=== PATIENT | male | born 1985 | race Hispanic/Latino ===

== ENCOUNTER 2022-04-29 13:25 | Emergency (ER) | payer OTHER, SELFPAY ==
[2022-04-29] VITALS (14 sets, daily range): BP systolic 138–172; BP diastolic 84–104; PULSE 80–95; RESP 17–18; TEMP 36.4; O2SAT 97–100; BMI 32.8
[2022-04-29 17:45] LABS: Add Manual Diff / Slide Review NO; Basophils Absolute Auto 100 /uL (0-100); Basophils Percent Auto 0.5 % (0-2); Eosinophils Absolute Auto 100 /uL (0-450); Eosinophils Percent Auto 1.2 % (2-4); Hematocrit 44.2 % (41-53); Hemoglobin 15.3 g/dL (13.5-17.5); Lymphocytes Absolute Auto 2000 /uL (1100-4500); Lymphocytes Percent Auto 18.2 % (25-40); Mean Corpuscular HGB Conc 34.7 % (30-36); Mean Corpuscular Hemoglobin 30.3 PG (26-34); Mean Corpuscular Volume 87.4 fL (80-100); Monocytes Absolute Auto 1100 /uL (0-900); Monocytes Percent Auto 10.3 % (3-14); Neutrophils Absolute Auto 7500 /uL (1500-7000); Neutrophils Percent Auto 69.8 % (50-75); Platelet Count 205 X10^3/uL (150-400); Red Blood Cell Count 5.05 X10^6/uL (4.5-5.9); Red Cell Distribution Width 13.3 % (11.6-14.8); White Blood Cell Count 10.7 X10^3/uL (4.5-11.0)
[2022-04-29] MEDS: KETOROLAC 30 MG/ML VIAL IV (18:03)
[2022-04-29] MEDS: SODIUM CHLORIDE 0.9% 1,000 ML 1000 ML IV (18:03)
[2022-04-29] MEDS: ONDANSETRON 4 MG/2 ML INJ IV (18:04)
[2022-04-29 18:07] LABS: Alanine Aminotransferase 143 IU/L (<50); Albumin 4.5 g/dL (3.5-5.0); Albumin Globulin Ratio 1.2 (1.0-2.8); Alkaline Phosphatase 72 U/L (38-126); Aspartate Aminotransferase 58 IU/L (17-59); BUN Creatinine Ratio 16.5 (6-22); Bilirubin Total 0.5 mg/dL (0.2-1.3); Blood Urea Nitrogen 15 mg/dL (9-20); Calcium 9.1 mg/dL (8.4-10.2); Carbon Dioxide 30 mmol/L (22-32); Chloride 99 mmol/L (98-107); Estimated Glomerular Filt Rate > 60 mL/min (>60); Globulin 3.7 g/dL (1.7-4.1); Glucose 138 mg/dL (70-100); HEMOLYSIS < 15 (0-50); Lipase 133 U/L (23-300); Potassium 3.8 mmol/L (3.4-5.1); Sodium 139 mmol/L (137-145); Total Protein 8.2 g/dL (6.3-8.2)
--- NOTE | 2022-04-29 19:23 | DI.CT.S_ITS ---
PROCEDURE: CT ABDOMEN PELVIS W CON INDICATIONS: ? rectal abcess TECHNIQUE: After the administration of IV contrast, axial sections were acquired from the lung bases to the pubic symphysis. Coronal and sagittal reformats were performed. For radiation dose reduction, the following was used: automated exposure control, adjustment of mA and/or kV according to patient size. COMPARISON: None. FINDINGS: Image quality: Excellent. Lung bases: There is mild dependent atelectasis. Heart: Heart is normal in size. ABDOMEN: Liver: There is heterogeneous hypoattenuation of the liver consistent with fatty infiltration with scattered areas of peripheral focal fatty sparing along the gallbladder fossa. Gallbladder: Within normal limits without calcified gallstones. Biliary ducts: No biliary ductal dilatation. Pancreas: Unremarkable. Spleen: Normal in size. Adrenal Glands: No adrenal nodules. Kidneys and Ureters: No hydronephrosis. Stomach and Bowel: Stomach and small bowel loops are normal in caliber and wall thickness. The appendix is not discretely well visualized but there are no pericecal inflammatory changes to suggest appendicitis. There is colonic diverticulosis without acute diverticulitis. Mild concentric wall thickening is demonstrated in the rectum. Peritoneum: No abnormal intraperitoneal fluid. No free air. Ventral Wall: No hernia. Abdominal Nodes: No retroperitoneal or mesenteric adenopathy by size criteria. Vessels: Aorta and inferior vena cava are normal in size. PELVIS: Pelvic Organs: Unremarkable. Bladder: Unremarkable. Pelvic Nodes: No enlarged lymph nodes. Miscellaneous: No inguinal hernias. There is a posterior thick-walled fluid collection consistent with a perianal abscess at the 6 o'clock position measuring approximately 2.5 x 1.0 cm in transverse dimension by 1.3 cm in craniocaudal dimension. Mild fat stranding is demonstrated within the adjacent soft tissues. Bones: Visualized osseous structures demonstrate no suspicious focal lesions. IMPRESSION: 1. Perianal abscess demonstrated at the 6 o'clock position. Further evaluation may be obtained with MRI if clinically indicated. 2. Colonic diverticulosis. 3. Hepatic steatosis. Dictated by: Rome Trimble M.D. on 04/29/2022 at 20:19 Approved by: Rome Trimble M.D. on 04/29/2022 at 20:28
--- NOTE | 2022-04-29 20:46 | ED_ITS ---
HPI - Skin/Abscess/Foreign Bdy General Chief complaint: Skin/Abscess/Foreign Body Stated complaint: abcess that is getting deeper Time Seen by Provider: 04/29/22 18:22 Source: patient Mode of arrival: Ambulatory History of Present Illness HPI narrative: Otherwise healthy 36-year-old gentleman, active [employer], presents with concerns for perirectal abscess. His symptoms began in late February. He he had a minor illness with vomiting for approximately 4 days associated with development of an abscess in the right inner buttock that he did not believe was near the rectum at that time. The size of that abscess has been waxing and waning but never completely resolving. Approximately 5 days ago it had dramatically increased swelling and pain. [place] and D on the with self-described quite a bit of purulence feeling somewhat better. Started on doxycycline. The wound was packed he saw his provider the following day the packing was changed. By today he was noticing that the pain was deeper down toward his rectum having difficulty sitting, difficulty passing stool. He does note that the fevers that he was experiencing earlier in the week have not been so immediately present and he does continue on the doxycycline. He is had no vomiting since earlier this week. No chest pain, palpitations, headaches, dizziness, shortness of breath. Related Data Home Medications Medication Instructions Recorded Confirmed doxycycline hyclate 100 mg capsule 100 mg PO DAILY 04/29/22 04/29/22 Previous Rx's Medication Instructions Recorded amoxicillin 875 mg-potassium 1 tab PO BID #20 tabs 04/29/22 clavulanate 125 mg tablet oxycodone-acetaminophen 5 mg-325 1 tab PO Q6H PRN pain #14 tabs 04/29/22 mg tablet Allergies Allergy/AdvReac Type Severity Reaction Status Date / Time No Known Drug Allergies Allergy Verified 04/29/22 14:06 Review of Systems Review of Systems Narrative: Remainder of complete review of systems is otherwise unremarkable except for that included in the HPI. Patient History Social History Smoking Status: Never smoker Smoking Status: Never smoker alcohol intake frequency: a few times a week Substance Use Type: does not use Exam Initial Vital Signs Initial Vital Signs: Vital Signs Temperature 97.6 F 04/29/22 14:03 Pulse Rate 85 04/29/22 14:03 Respiratory Rate 17 04/29/22 14:03 Blood Pressure 172/92 H 04/29/22 14:03 Pulse Oximetry 98 04/29/22 14:03 Oxygen Delivery Method 04/29/22 14:03 General: Healthy appearing, in no acute distress. Able to give a complete and coherent history. Well-nourished well-developed HEENT: Moist mucous membranes, normal sclera with reactive pupils, Neck: No JVD, supple Respiratory: Lungs are clear to auscultation, no wheezing no rales no rhonchi. Full and symmetrical air movement Cardiac: Regular rate and rhythm no murmurs no bruits Abdomen: Soft, nontender, good bowel tones, no flank pain Skin: Warm and dry, no rashes Perianal area: I&D incision well out on the inner gluteal cleft almost 2 the actual buttock cheek is beginning to heal, no drainage, no fluctuance under that area and no erythema. Deeper toward the rectum there is increased induration and significant tenderness. No discharge is appreciated Neurologic: Grossly neurologically intact with no obvious asymmetries or abnormalities Extremities: No trauma, well perfused Psych: Cooperative, appropriate insight and affect Course Orders Ordered: ED Orders 04/29/22 17:25 Complete Blood Count AUTO DIFF Stat Comprehensive Metabolic Panel Stat Lipase Stat 04/29/22 19:23 CT abdomen pelvis w con Stat Discontinued Medications Sodium Chloride (Normal Saline 0.9%) 1,000 mls @ 1,000 mls/hr IV BOLUS ONE Stop: 04/29/22 18:14 Last Infusion: 04/29/22 19:10 Dose: 0 mls/hr Documented By: Admin: 04/29/22 18:03 Dose: 1,000 mls/hr Documented By: RB Ketorolac Tromethamine (Ketorolac 30 Mg/Ml Vial) 30 mg IV NOW ONE Stop: 04/29/22 17:16 Last Admin: 04/29/22 18:03 Dose: 30 mg Documented By: RB Ondansetron HCl (Ondansetron 4 Mg/2 Ml Inj) 4 mg IV NOW ONE Stop: 04/29/22 17:15 Last Admin: 04/29/22 18:04 Dose: 4 mg Documented By: RB Oxycodone/Acetaminophen (Oxycodone/Apap 5/325 Prepack) 1 bottle MISC SEEINSTR ONE Stop: 04/29/22 21:48 Vital Signs Vital signs: Vital Signs - 8 hr 04/29/22 14:03 04/29/22 17:12 04/29/22 17:13 Temperature 97.6 F Pulse Rate 85 86 Respiratory Rate 17 Blood Pressure 172/92 H 162/104 H Pulse Oximetry 98 100 Oxygen Delivery Method Room Air 04/29/22 17:13 04/29/22 17:30 04/29/22 17:36 Temperature Pulse Rate 86 89 Respiratory Rate Blood Pressure 145/99 H Pulse Oximetry 100 99 Oxygen Delivery Method 04/29/22 17:36 04/29/22 18:00 04/29/22 18:00 Temperature Pulse Rate 88 89 Respiratory Rate Blood Pressure 151/100 H Pulse Oximetry 98 98 Oxygen Delivery Method 04/29/22 18:30 04/29/22 18:31 04/29/22 18:31 Temperature Pulse Rate 87 89 Respiratory Rate Blood Pressure 144/85 H Pulse Oximetry 98 98 Oxygen Delivery Method 04/29/22 19:00 04/29/22 19:00 Temperature Pulse Rate 95 H Respiratory Rate Blood Pressure 148/91 H Pulse Oximetry 98 Oxygen Delivery Method MDM - Skin/Abscess/Foreign Bdy Lab Data Result diagrams: 04/29/22 17:25 04/29/22 17:25 Labs: Lab Results 04/29/22 04/29/22 Range/Units 17:25 17:25 WBC 10.7 (4.5-11.0) X10^3/uL RBC 5.05 (4.5-5.9) X10^6/uL Hgb 15.3 (13.5-17.5) g/dL Hct 44.2 (41-53) % MCV 87.4 (80-100) fL MCH 30.3 (26-34) PG MCHC 34.7 (30-36) % RDW 13.3 (11.6-14.8) % Plt Count 205 (150-400) X10^3/uL Neut % (Auto) 69.8 (50-75) % Lymph % (Auto) 18.2 L (25-40) % [place] % (Auto) 10.3 (3-14) % Eos % (Auto) 1.2 L (2-4) % Baso % (Auto) 0.5 (0-2) % Neut # (Auto) 7500 H (1249-5675) /uL Lymph # (Auto) 2000 (1294-4202) /uL [place] # (Auto) 1100 H (0-900) /uL Eos # (Auto) 100 (0-450) /uL Baso # (Auto) 100 (0-100) /uL Sodium 139 (137-145) mmol/L Potassium 3.8 (3.4-5.1) mmol/L Chloride 99 (98-107) mmol/L Carbon Dioxide 30 (22-32) mmol/L BUN 15 (9-20) mg/dL Creatinine 0.91 (0.66-1.25) mg/dL Estimated GFR > 60 (>60) mL/min BUN/Creatinine Ratio 16.5 (6-22) Glucose 138 H (70-100) mg/dL Calcium 9.1 (8.4-10.2) mg/dL Total Bilirubin 0.5 (0.2-1.3) mg/dL AST 58 (17-59) IU/L ALT 143 H (<50) IU/L Alkaline Phosphatase 72 (38-126) U/L Total Protein 8.2 (6.3-8.2) g/dL Albumin 4.5 (3.5-5.0) g/dL Globulin 3.7 (1.7-4.1) g/dL Albumin/Globulin Ratio 1.2 (1.0-2.8) Lipase 133 (23-300) U/L Urine Dip Bedside Urine Glucose Negative Bedside Urine Bilirubin - Negative Bedside Urine Ketone - Negative Urine Specific [place] 1.025 Bedside Urine Occult Blood - Negative Bedside Urine pH 6.0 Bedside Urine Protein - Negative Bedside Urine Urobilinogen 0.2 Bedside Urine Nitrite - Negative Bedside Urine Leukocytes - Negative Esterase Imaging Data CT scan - abdomen/pelvis: Radiologist's Impression: FINDINGS:? Image quality:? Excellent.? ? Lung bases:? There is mild dependent atelectasis.? ? Heart:? Heart is normal in size. ? ? ABDOMEN: Liver:? There is heterogeneous hypoattenuation of the liver consistent with fatty infiltration with scattered areas of peripheral focal fatty sparing along the gallbladder fossa. Gallbladder:? Within normal limits without calcified gallstones.? ? Biliary ducts:? No biliary ductal dilatation.? ? Pancreas:? Unremarkable.? ? Spleen:? Normal in size.? ? Adrenal Glands:? No adrenal nodules.? ? Kidneys and Ureters:? No hydronephrosis.? ? ? Stomach and Bowel:? Stomach and small bowel loops are normal in caliber and wall thickness.? The appendix is not discretely well visualized but there are no pericecal inflammatory changes to suggest appendicitis.? There is colonic diverticulosis without acute diverticulitis.? Mild concentric wall thickening is demonstrated in the rectum.? Peritoneum:? No abnormal intraperitoneal fluid.? No free air.? ? Ventral Wall: ? No hernia.? Abdominal Nodes:? No retroperitoneal or mesenteric adenopathy by size criteria.? Vessels:? Aorta and inferior vena cava are normal in size.? ? PELVIS: Pelvic Organs:? Unremarkable.? ? Bladder:? Unremarkable.? ? Pelvic Nodes: No enlarged lymph nodes.? Miscellaneous: No inguinal hernias. ? ? There is a posterior thick-walled fluid collection consistent with a perianal abscess at the 6 o'clock position measuring approximately 2.5 x 1.0 cm in transverse dimension by 1.3 cm in craniocaudal dimension.? Mild fat stranding is demonstrated within the adjacent soft tissues. ? Bones:? Visualized osseous structures demonstrate no suspicious focal lesions. ? IMPRESSION:? ? 1.? Perianal abscess demonstrated at the 6 o'clock position.? Further evaluation may be obtained with MRI if clinically indicated. ? 2. Colonic diverticulosis. ? 3. Hepatic steatosis.? ? ? Dictated by: Rome Trimble M.D. on 04/29/2022 at 20:19 ? ? [facility] Narrative Medical decision making narrative: 36-year-old gentleman with what looked like a gluteal abscess now turning into a perineal abscess has been I indeed increasing pain. CT scan will be reviewed with General surgery to see which course of treatment is going to be most ap propriate for him. CT scan has been reviewed with general surgeon, Dr. Rogers. She agrees that c ontinued oral antibiotic management as an outpatient is most appropriate. Additional prescription for amoxicillin to add to his doxycycline is given. Reviewed findings and recommendations as well as using MiraLax should he choose to use the oxycodone that has been prescribed. Encouraged him to return if he has worsening signs or symptoms. Discharge Plan Departure Patient Disposition: Home Clinical Impression: Abscess, perirectal Activity Restrictions/Additional Instructions: Thank you for coming in today The CT scan showed that you do still have a bit of fluid collection/pus around your anus however it is not big enough that you need any additional drainage or surgery. I have reviewed the CT scans with our surgeon. I do want to add Augmentin to your doxycycline. Please complete courses of both antibiotics. Using 400 mg of ibuprofen (2 [id number] pills) and 1 Tylenol every 6 hours can be very helpful in controlling pain. For severe pain you can take 400 mg of ibuprofen and 1 Percocet. Percocet can make you constipated and at this point, you want to have your stool as soft as possible so that is not painful to pass. I would recommend using a cap full of MiraLax to keep your stool soft each day that you are using a narcotic. Prescriptions were electronically transmitted to [facility] in [place]. MiraLax is available [email or web address] If you find that you are getting worse or have new findings, you do need to return to the ER Prescriptions: New amoxicillin-pot clavulanate 875-125 mg tablet 1 tab PO BID Qty: 20 0RF oxycodone-acetaminophen 5-325 mg tablet 1 tab PO Q6H PRN (Reason: pain) Qty: 14 0RF No Action doxycycline hyclate 100 mg capsule 100 mg PO DAILY
[2022-04-29] MEDS: AMOXICILLIN/CLAV 875/125 MG 1 TAB PO (21:56)
[2022-04-29] MEDS: OXYCODONE/APAP 5/325 PREPACK 1 BOTTLE MISC (21:56)
== END 2022-04-29 22:07 | disposition home or self-care (01) ==
PROVIDERS: Emergency Medicine; Emergency Provider Emergency Medicine
DX: K61.1 Rectal abscess (principal)
CPT/HCPCS: 36415; 74177; 80053; 81003; 83690; 85025; 96361; 96374; 96375; 99284; J1885; J2405; Q9967

== ENCOUNTER 2023-09-11 08:40 | Emergency (ER) | payer OTHER, SELFPAY ==
[2023-09-11 08:48] VITALS: PULSE 82; O2SAT 98
[2023-09-11 08:50] VITALS: BP 151/93; PULSE 80; RESP 16; TEMP 36.6; O2SAT 98; BMI 32.8
--- NOTE | 2023-09-11 08:53 | ED.SKABFB ---
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 He says a couple weeks ago he had something similar it resolved itself there was a bunch of blood and it got better. Over the last 4 days he has had actual sphincter perirectal pain and swelling. He gives concern that there is an abscess growing. He does not actually have buttock pain or redness. He has no fever chills nausea vomiting or any other symptoms. Based on his history is quite concerned. He denies any history of hemorrhoids. Related Data Home Medications Medication Instructions Recorded Confirmed doxycycline hyclate 100 mg capsule 100 mg PO DAILY 04/29/22 04/29/22 Previous Rx's Medication Instructions Recorded amoxicillin 875 mg-potassium 1 tab PO BID #20 tabs 04/29/22 clavulanate 125 mg tablet oxycodone-acetaminophen 5 mg-325 1 tab PO Q6H PRN pain #14 tabs 04/29/22 mg tablet docusate sodium 100 mg capsule 100 mg PO BID PRN constipation #20 09/11/23 (Stool Softener) caps hydrocortisone acetate 25 mg 25 mg [place] DAILY PRN hemorrhoids #12 09/11/23 rectal suppository (Anusol-HC) ea Allergies Allergy/AdvReac Type Severity Reaction Status Date / Time No Known Drug Allergies Allergy Verified 04/29/22 14:06 Patient History Social History Smoking Status: Never smoker Smoking Status: Never smoker alcohol intake frequency: a few times a week Substance Use Type: does not use Exam Initial Vital Signs Initial Vital Signs: Vital Signs Pulse Rate 82 09/11/23 08:48 Pulse Oximetry 98 09/11/23 08:48 GENERAL: Well-appearing, well-nourished and in no acute distress. CARDIOVASCULAR: peripheral pulses in tact, cap refill <2 sec RESPIRATORY: No respiratory distress, speaks in full sentences without difficulty ABDOMEN: Soft, nontender, no guarding or rebound RECTAL: There is swelling which looks like hemorrhoid at the sphincter right at around 1 o' clock. No gluteal abscess no erythema this is directly in the sphincter EXTREMITIES: Normal range of motion, no clubbing or edema. Neurovascularly intact NEUROLOGICAL: Cranial nerves II through XII grossly intact. Normal gait and speech. SKIN: Warm, dry, no petechiae, no rashes or lesions. Course Vital Signs Vital signs: Vital Signs - 8 hr 09/11/23 08:48 09/11/23 08:50 Temperature 97.9 F Pulse Rate 82 80 Respiratory Rate 16 Blood Pressure 151/93 H Pulse Oximetry 98 98 Oxygen Delivery Method Room Air MDM - Skin/Abscess/Foreign Bdy MDM Narrative Medical decision making narrative: Patient 37-year-old male presents with rectal pain. He does have a history of fistula with surgery 2 years prior. However today he has absolutely no sign subcutaneous or gluteal abscess. 2 weeks ago he had a similar presentation he had sudden onset of blood and it resolved. I do think this may be a hemorrhoid rather than a abscess. He overall appears well nontoxic not having any sort of fever. We discussed treating it for hemorrhoid however symptoms are worsening then he definitely needs to return. He understands this. I also encouraged him to get a colonoscopy. Discharge Plan Departure Patient Disposition: Home Clinical Impression: External hemorrhoids Instructions: DI for Hemorrhoids Activity Restrictions/Additional Instructions: *You have been diagnosed with hemorrhoids *What to do: At this time was treat this for hemorrhoid. I recommend not getting constipated taking a stool softener daily. Also recommend an outpatient colonoscopy for recurrent problems. Please monitor closely for abscess. Monitor for increasing pain swelling redness Recommend Sitz bath *Continue to take medications as directed Colace 1 tablet 1-2 times daily as needed for constipation Anusol suppositories 1 2-3 times a day as needed for hemorrhoids *Follow up with your primary care provider in 2-3 days or call [phone] *Return to ER if you should have increasing pain swelling fever redness [or] any new, worsening or concerning symptoms Prescriptions: New docusate sodium [Stool Softener] 100 mg capsule 100 mg PO BID PRN (Reason: constipation) Qty: 20 0RF hydrocortisone acetate [Anusol-HC] 25 mg suppository 25 mg [place] DAILY PRN (Reason: hemorrhoids) Qty: 12 0RF No Action doxycycline hyclate 100 mg capsule 100 mg PO DAILY amoxicillin-pot clavulanate 875-125 mg tablet 1 tab PO BID Qty: 20 0RF oxycodone-acetaminophen 5-325 mg tablet 1 tab PO Q6H PRN (Reason: pain) Qty: 14 0RF Stand Alone Forms: Patient Portal/API
== END 2023-09-11 09:23 | disposition home or self-care (01) ==
PROVIDERS: Emergency Provider Emergency Medicine
DX: K64.4 Residual hemorrhoidal skin tags (principal)
CPT/HCPCS: 99281

== ENCOUNTER 2023-09-12 11:31 | Emergency (ER) | payer OTHER, SELFPAY ==
[2023-09-12 11:32] VITALS: BP 160/73; PULSE 83; RESP 16; TEMP 36.6; O2SAT 99; BMI 32.8
[2023-09-12 11:52] LABS: Add Manual Diff / Slide Review NO; Basophils Absolute Auto 100 /uL (0-100); Basophils Percent Auto 0.5 % (0-2); Eosinophils Absolute Auto 100 /uL (0-450); Eosinophils Percent Auto 0.9 % (2-4); Hematocrit 46.2 % (41-53); Hemoglobin 15.7 g/dL (13.5-17.5); Lymphocytes Absolute Auto 2200 /uL (1100-4500); Lymphocytes Percent Auto 20.1 % (25-40); Mean Corpuscular HGB Conc 34.1 % (30-36); Mean Corpuscular Volume 88.2 fL (80-100); Monocytes Absolute Auto 1100 /uL (0-900); Monocytes Percent Auto 10.2 % (3-14); Neutrophils Absolute Auto 7400 /uL (1500-7000); Neutrophils Percent Auto 68.3 % (50-75); Platelet Count 168 X10^3/uL (150-400); Red Blood Cell Count 5.24 X10^6/uL (4.5-5.9); Red Cell Distribution Width 12.6 % (11.6-14.8); White Blood Cell Count 10.9 X10^3/uL (4.5-11.0)
[2023-09-12 12:04] LABS: Lactate (Lactic Acid) 1.1 mmol/L (0.7-2.1)
[2023-09-12 12:05] LABS: Alanine Aminotransferase 88 IU/L (<50); Albumin 4.7 g/dL (3.5-5.0); Albumin Globulin Ratio 1.2 (1.0-2.8); Alkaline Phosphatase 71 U/L (38-126); Aspartate Aminotransferase 40 IU/L (17-59); BUN Creatinine Ratio 22.9 (6-22); Bilirubin Total 1.1 mg/dL (0.2-1.3); Blood Urea Nitrogen 19 mg/dL (9-20); Calcium 9.7 mg/dL (8.4-10.2); Carbon Dioxide 24 mmol/L (22-32); Chloride 105 mmol/L (98-107); Estimated Glomerular Filt Rate > 60 mL/min (>60); Globulin 3.8 g/dL (1.7-4.1); Glucose 110 mg/dL (70-100); HEMOLYSIS < 15 (0-50); Potassium 4.2 mmol/L (3.4-5.1); Sodium 138 mmol/L (137-145); Total Protein 8.5 g/dL (6.3-8.2)
[2023-09-12] MEDS: MORPHINE 4 MG/ML INJ IV (12:06)
[2023-09-12] MEDS: ONDANSETRON 4 MG/2 ML INJ IV (12:07)
[2023-09-12 12:26] VITALS: PULSE 78; O2SAT 98
[2023-09-12 12:30] VITALS: BP 166/85; PULSE 84; RESP 16; O2SAT 98
--- NOTE | 2023-09-12 12:51 | DI.CT.S_ITS ---
PROCEDURE: CT ABDOMEN PELVIS W CON INDICATIONS: rectal abcess TECHNIQUE: After the administration of intravenous contrast, axial sections acquired from the lung bases to the pubic symphysis. Coronal and sagittal reformats were performed. For radiation dose reduction, the following was used: automated exposure control, adjustment of mA and/or kV according to patient size. COMPARISON: [facility], CT, CT ABDOMEN PELVIS W CON, 04/29/2022, 19:30. FINDINGS: Image quality: Diagnostic. Lower Chest: No significant findings. ABDOMEN: Liver: No solid mass. Diffuse fatty infiltration of the liver. Gallbladder: No radiopaque gallstones or wall thickening. Biliary ducts: No biliary dilation. Pancreas: No ductal dilation. Spleen: Size is within normal limits. Adrenal Glands: No adrenal nodules. Kidneys and Ureters: No hydronephrosis. No solid mass. No complex renal cystic lesion which requires follow up. Stomach and Bowel: Normal colonic caliber, without significant wall thickening. Scattered colonic diverticuli without evidence of diverticulitis. The appendix is not definitely visualized, however no inflammatory changes or free fluid noted adjacent to the cecum. Peritoneum: No abnormal intraperitoneal fluid. No free air. Ventral Wall: No significant ventral hernia. Abdominal Nodes: No retroperitoneal or mesenteric adenopathy by size criteria. Vessels: Aorta and inferior vena cava are normal in size. PELVIS: Pelvic Organs: Unremarkable. Bladder: No bladder wall thickening, accounting for underdistention. Pelvic Nodes: No enlarged lymph nodes. Miscellaneous: No inguinal hernias are seen. There is a 3.0 x 1.2 x 1.8 centimeter peripherally enhancing fluid collection in the soft tissues dorsal to the anus compatible with perianal abscess. Bones: No aggressive osseous abnormality. IMPRESSION: 3.0 by 1.2 x 1.8 centimeter perianal abscess. Dictated by: Sarahi Toro MD, PhD on 09/12/2023 at 14:40 Approved by: Sarahi Toro MD, PhD on 09/12/2023 at 14:44
[2023-09-12 13:00] VITALS: PULSE 70; O2SAT 97
[2023-09-12 13:01] VITALS: BP 134/66; PULSE 70; O2SAT 98
--- NOTE | 2023-09-12 13:31 | ED_ITS ---
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 Son evaluated yesterday he had some obvious swelling in his sphincter thought to be a hemorrhoid he reports that he took multiple bowels yesterday as instructed he used the steroid suppository as instructed however last night he woke up multiple times stretching and sweat he is having increasing pain and swelling he is currently afebrile. Related Data Previous Rx's Medication Instructions Recorded docusate sodium 100 mg capsule 100 mg PO BID PRN constipation #20 09/11/23 (Stool Softener) caps hydrocortisone acetate 25 mg 25 mg [place] DAILY PRN hemorrhoids #12 09/11/23 rectal suppository (Anusol-HC) ea hydrocodone 5 mg-acetaminophen 325 1 tab PO Q6H PRN pain #10 tabs 09/12/23 mg tablet levofloxacin 750 mg tablet 750 mg PO DAILY 7 days #7 tabs 09/12/23 Allergies Allergy/AdvReac Type Severity Reaction Status Date / Time No Known Drug Allergies Allergy Verified 09/12/23 11:38 Patient History Social History Smoking Status: Never smoker Smoking Status: Never smoker alcohol intake frequency: holidays/special occasions only Substance Use Type: does not use Exam Initial Vital Signs Initial Vital Signs: Vital Signs Temperature 97.8 F 09/12/23 11:32 Pulse Rate 83 09/12/23 11:32 Respiratory Rate 16 09/12/23 11:32 Blood Pressure 160/73 H 09/12/23 11:32 Pulse Oximetry 99 09/12/23 11:32 Oxygen Delivery Method Room Air 09/12/23 11:32 GENERAL: Alert 37-year-old male appears uncomfortable and in no acute distress. HEENT: Head atraumatic,EOMI, pupils reactive, face symmetric, moist mucous membranes CARDIOVASCULAR: Regular rate and rhythm without murmurs, rubs or gallops. RESPIRATORY: Breath sounds equal bilaterally, no wheezes rales or rhonchi. ABDOMEN: Soft, nontender. Normoactive bowel sounds all 4 quadrants. No guarding or rebound. EXTREMITIES: Normal range of motion, no clubbing or edema. Neurovascularly intact NEUROLOGICAL: Alert and oriented x4. SKIN: Warm, dry, no laceration, no petechiae, no rashes or lesions. Course Orders Ordered: ED Orders 09/12/23 11:45 CBC Auto Diff [Complete Blood Count AUTO DIFF] Stat CMP [Comprehensive Metabolic Panel] Stat Lactate (Lactic Acid) Stat 09/12/23 11:50 Blood Culture Stat 09/12/23 12:51 CT abdomen pelvis w con Stat 09/12/23 15:52 Wound Culture and Gram Stain Stat Discontinued Medications Morphine Sulfate (Morphine 4 Mg/Ml Inj) 4 mg IV NOW ONE Stop: 09/12/23 11:49 Last Admin: 09/12/23 12:06 Dose: 4 mg Documented By: FLAQUITA Morphine Sulfate (Morphine 2 Mg/Ml Inj) 2 mg IV Q2HR PRN PRN Reason: Pain, Moderate (4-6) Last Admin: 09/12/23 13:39 Dose: 2 mg Documented By: ROZ Ondansetron HCl (Ondansetron 4 Mg/2 Ml Inj) 4 mg IV NOW ONE Stop: 09/12/23 11:49 Last Admin: 09/12/23 12:07 Dose: 4 mg Documented By: FLAQUITA Vital Signs Vital signs: Vital Signs - 8 hr 09/12/23 11:32 09/12/23 12:26 09/12/23 12:30 Temperature 97.8 F Pulse Rate 83 78 84 Respiratory Rate 16 16 Blood Pressure 160/73 H Pulse Oximetry 99 98 98 Oxygen Delivery Method Room Air Room Air 09/12/23 12:30 09/12/23 13:00 09/12/23 13:01 Temperature Pulse Rate 70 70 Respiratory Rate Blood Pressure 166/85 H Pulse Oximetry 97 98 Oxygen Delivery Method 09/12/23 13:01 Temperature Pulse Rate Respiratory Rate Blood Pressure 134/66 Pulse Oximetry Oxygen Delivery Method MDM - Skin/Abscess/Foreign Bdy Lab Data 09/12/23 11:45 09/12/23 11:45 Labs: Lab Results 09/12/23 Range/Units 11:45 WBC 10.9 (4.5-11.0) X10^3/uL RBC 5.24 (4.5-5.9) X10^6/uL Hgb 15.7 (13.5-17.5) g/dL Hct 46.2 (41-53) % MCV 88.2 (80-100) fL MCH 30.0 (26-34) PG MCHC 34.1 (30-36) % RDW 12.6 (11.6-14.8) % Plt Count 168 (150-400) X10^3/uL Neut % (Auto) 68.3 (50-75) % Lymph % (Auto) 20.1 L (25-40) % [place] % (Auto) 10.2 (3-14) % Eos % (Auto) 0.9 L (2-4) % Baso % (Auto) 0.5 (0-2) % Neut # (Auto) 7400 H (9169-2235) /uL Lymph # (Auto) 2200 (2589-6111) /uL [place] # (Auto) 1100 H (0-900) /uL Eos # (Auto) 100 (0-450) /uL Baso # (Auto) 100 (0-100) /uL Sodium 138 (137-145) mmol/L Potassium 4.2 (3.4-5.1) mmol/L Chloride 105 (98-107) mmol/L Carbon Dioxide 24 (22-32) mmol/L BUN 19 (9-20) mg/dL Creatinine 0.83 (0.66-1.25) mg/dL Estimated GFR > 60 (>60) mL/min BUN/Creatinine Ratio 22.9 H (6-22) Glucose 110 H (70-100) mg/dL Lactate 1.1 (0.7-2.1) mmol/L Calcium 9.7 (8.4-10.2) mg/dL Total Bilirubin 1.1 (0.2-1.3) mg/dL AST 40 (17-59) IU/L ALT 88 H (<50) IU/L Alkaline Phosphatase 71 (38-126) U/L Total Protein 8.5 H (6.3-8.2) g/dL Albumin 4.7 (3.5-5.0) g/dL Globulin 3.8 (1.7-4.1) g/dL Albumin/Globulin Ratio 1.2 (1.0-2.8) Imaging Data CT scan - abdomen/pelvis: Radiologist's Impression: PROCEDURE: CT ABDOMEN PELVIS W CON INDICATIONS: rectal abcess TECHNIQUE: After the administration of intravenous contrast, axial sections acquired from the lung bases to the pubic symphysis. Coronal and sagittal reformats were performed. For radiation dose reduction, the following was used: automated exposure control, adjustment of mA and/or kV according to patient size. COMPARISON: [facility], CT, CT ABDOMEN PELVIS W CON, 04/29/2022, 19:30. FINDINGS: Image quality: Diagnostic. Lower Chest: No significant findings. ABDOMEN: Liver: No solid mass. Diffuse fatty infiltration of the liver. Gallbladder: No radiopaque gallstones or wall thickening. Biliary ducts: No biliary dilation. Pancreas: No ductal dilation. Spleen: Size is within normal limits. Adrenal Glands: No adrenal nodules. Kidneys and Ureters: No hydronephrosis. No solid mass. No complex renal cystic lesion which requires follow up. Stomach and Bowel: Normal colonic caliber, without significant wall thickening. Scattered colonic diverticuli without evidence of diverticulitis. The appendix is not definitely visualized, however no inflammatory changes or free fluid noted adjacent to the cecum. Peritoneum: No abnormal intraperitoneal fluid. No free air. Ventral Wall: No significant ventral hernia. Abdominal Nodes: No retroperitoneal or mesenteric adenopathy by size criteria. Vessels: Aorta and inferior vena cava are normal in size. PELVIS: Pelvic Organs: Unremarkable. Bladder: No bladder wall thickening, accounting for underdistention. Pelvic Nodes: No enlarged lymph nodes. Miscellaneous: No inguinal hernias are seen. There is a 3.0 x 1.2 x 1.8 centimeter peripherally enhancing fluid collection in the soft tissues dorsal to the anus compatible with perianal abscess. Bones: No aggressive osseous abnormality. IMPRESSION: 3.0 by 1.2 x 1.8 centimeter perianal abscess. Dictated by: Sarahi Toro MD, PhD on 09/12/2023 at 14:40 MDM Narrative Medical decision making narrative: Patient 37-year-old male presenting today with worsening rectal pain and swelling. He was seen evaluated by myself yesterday thought to be hemorrhoid but he does have a history of abscess. Today on exam it does look larger. He reports having sweats last night but is currently afebrile hemodynamically stable without fever tachycardia or hypotension. Blood work has been WBC 10.9, hemoglobin 15.7, hematocrit 46, electrolytes stable no LIZZ Imaging reviewed shows perianal abscess 3.0 x 1.2 x 1.8 cm peripheral enhancing fluid collection in the soft tissues 1500: Dr. Rogers surgery updated patient's symptoms test results. At this time she recommends outpatient antibiotics patient is agreeable can do an 18 gauge needle drainage. She has patient's info and will see him in the office this week Patient had a successful needle drainage. About 10 mL of copious brown foul smelling drainage was removed. Patient started feeling a lot better. Understands and agrees with follow-up with surgery Discharge Plan Departure Patient Disposition: Home Clinical Impression: Abscess, perianal Instructions: DI for Skin Abscess Activity Restrictions/Additional Instructions: *You have been diagnosed with perianal abscess *What to do: I hope you feel a little better after the drainage. Continue warm baths take antibiotics *Continue to take medications as directed Levaquin 750 mg once a day for 7 days [place] 1 tablet every 4-6 hours if needed for severe pain MiraLax daily Ibuprofen 600 mg every 6 hours for [id number] pain *Follow up with your primary care provider in 2-3 days or call [phone] Rogers's office today or tomorrow to schedule follow up appointment. She is aware of you *Return to ER if you should have fever increasing pain or any new, worsening or concerning symptoms CONTROLLED SUBSTANCE DISCHARGE (Narcotoic/benzodiazepine/Flexeril/Phenergan) 1. You have been prescribed narcotic medications, it does have acetaminophen/Tylenol/paracetamol in it, DO NOT TAKE MORE THAN 4,00mg in 24 hours of Tylenol. TRAMADOL DOES NOT CONTAIN TYLENOL 2. Please understand that we cannot provide further refills of narcotics, benzodiazepines or controlled substances through the ED and her pain management will need to be through your provider. 3. While on these medications you cannot drive or operate heavy machinery. 4. You cannot sign legal documents or perform any duties such as this. 5. As long as you're taking opiate pain medications he should also be taking a stool softener such as Colace, Dulcolax, MiraLAX or prune juice, to help avoid constipation. Prescriptions: New levofloxacin 750 mg tablet 750 mg PO DAILY 7 Days Qty: 7 0RF hydrocodone-acetaminophen 5-325 mg tablet 1 tab PO Q6H PRN (Reason: pain) Qty: 10 0RF No Action docusate sodium [Stool Softener] 100 mg capsule 100 mg PO BID PRN (Reason: constipation) Qty: 20 0RF hydrocortisone acetate [Anusol-HC] 25 mg suppository 25 mg IA DAILY PRN (Reason: hemorrhoids) Qty: 12 0RF Referrals: Jo Rogers MD [Physician] - Stand Alone Forms: Patient Portal/API
[2023-09-12] MEDS: MORPHINE 2 MG/ML INJ IV (13:39)
== END 2023-09-12 15:48 | disposition home or self-care (01) ==
PROVIDERS: Emergency Provider Emergency Medicine
DX: K61.0 Anal abscess (principal)
CPT/HCPCS: 36415; 74177; 80053; 83605; 85025; 87040; 87070; 87075; 87077; 87186; 87205; 96374; 96375; 96376; 99284; J2270; J2405; Q9967

== ENCOUNTER 2024-03-20 17:26 | Inpatient (IN) | payer OTHER, SELFPAY ==
[2024-03-20 17:31] VITALS: BP 143/90; PULSE 95; RESP 18; TEMP 37.1; O2SAT 97; BMI 33.6
--- NOTE | 2024-03-20 19:45 | ED.SKABFB ---
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 Patient returns today with concern for recurrence. States he had a hemorrhoid recently after having a lot of diarrhea, he used suppositories which was helpful but then had some new swelling and pain which he states feels much different and feels like his prior abscess. It is at the 12 o'clock position, he states increased swelling and discomfort. He has had some sweats, no objective fevers. Denies any abdominal pain. States he does have pain of the rectal area. States painful initially to sit down but then improves. Denies any nausea or vomiting. He recently had diarrhea but that has improved. No urinary symptoms. Patient states no prescription medications currently, no known drug allergies. Did review prior surgery for prior abscess with a partial sphincterotomy. Patient states he has also had I and D's of abscess in the area as well. Patient states no tobacco, occasional beer, no recreational drugs. Related Data Previous Rx's Medication Instructions Recorded docusate sodium 100 mg capsule 100 mg PO BID PRN constipation #20 09/11/23 (Stool Softener) caps hydrocortisone acetate 25 mg 25 mg [place] DAILY PRN hemorrhoids #12 09/11/23 rectal suppository (Anusol-HC) ea hydrocodone 5 mg-acetaminophen 325 1 tab PO Q6H PRN pain #10 tabs 09/12/23 mg tablet Allergies Allergy/AdvReac Type Severity Reaction Status Date / Time No Known Drug Allergies Allergy Verified 09/12/23 11:38 Review of Systems Review of Systems ROS Unobtainable: All systems reviewed & are unremarkable except as noted in HPI and below Patient History Social History Smoking Status: Never smoker Smoking Status: Never smoker alcohol intake frequency: other Alcohol type: beer Substance Use Type: does not use Exam Narrative Exam Narrative: GENERAL: Alert and oriented x three, male in mild distress. HEENT: Head normocephalic, atraumatic, EOMI, pupils reactive, face symmetric, moist mucous membranes NECK: Supple, full range of motion CARDIOVASCULAR: Regular rate and rhythm without murmurs, rubs or gallops. RESPIRATORY: Breath sounds equal bilaterally, no wheezes rales or rhonchi. ABDOMEN: Soft, nontender. Normoactive bowel sounds all 4 quadrants. No guarding or rebound, rigidity, no mass, patient does have some swelling at the 12 o'clock position, does have what appears little bit but like a hemorrhoid but extends a little bit farther out unexpected it is soft not indurated, it is not fluctuant, there is no clear erythema, the area is tender. There is no surrounding fluctuance or induration appreciated. : No CVA tenderness EXTREMITIES: Normal range of motion, no clubbing or edema. Neurovascularly intact. Normal gait. NEUROLOGICAL: Cranial nerves II through XII grossly intact. Moving all extremities SKIN: Warm, dry, no petechiae, no rashes or lesions. Initial Vital Signs Initial Vital Signs: Vital Signs Temperature 98.7 F 03/20/24 17:31 Pulse Rate 95 H 03/20/24 17:31 Respiratory Rate 18 03/20/24 17:31 Blood Pressure 143/90 H 03/20/24 17:31 Pulse Oximetry 97 03/20/24 17:31 Oxygen Delivery Method Room Air 03/20/24 17:31 Course Orders Ordered: ED Orders 03/20/24 19:53 CT abdomen pelvis w con Stat 03/20/24 19:55 CBC Auto Diff [Complete Blood Count AUTO DIFF] Stat CMP [Comprehensive Metabolic Panel] Stat Discontinued Medications Piperacillin Sod/Tazobactam (Sod 4.5 gm/ Sodium Chloride) 100 mls @ 200 mls/hr IV NOW ONE Stop: 03/20/24 19:54 Last Admin: 03/20/24 20:13 Dose: 200 mls/hr Documented By: Ketorolac Tromethamine (Ketorolac 30 Mg/Ml Vial) 15 mg IV NOW ONE Stop: 03/20/24 19:54 Last Admin: 03/20/24 20:12 Dose: 15 mg Documented By: Morphine Sulfate (Morphine 2 Mg/Ml Inj) 2 mg IV NOW ONE Stop: 03/20/24 20:52 Vital Signs Vital signs: Vital Signs - 8 hr 03/20/24 17:31 03/20/24 20:00 Temperature 98.7 F Pulse Rate 95 H 65 Respiratory Rate 18 18 Blood Pressure 143/90 H 135/78 Pulse Oximetry 97 99 Oxygen Delivery Method Room Air Room Air MDM - Skin/Abscess/Foreign Bdy Lab Data 03/20/24 19:55 03/20/24 19:55 Labs: Lab Results 03/20/24 Range/Units 19:55 WBC 13.2 H (4.5-11.0) X10^3/uL RBC 5.38 (4.5-5.9) X10^6/uL Hgb 16.4 (13.5-17.5) g/dL Hct 47.7 (41-53) % MCV 88.8 (80-100) fL MCH 30.5 (26-34) PG MCHC 34.3 (30-36) % RDW 13.4 (11.6-14.8) % Plt Count 177 (150-400) X10^3/uL Neut % (Auto) 70.7 (50-75) % Lymph % (Auto) 20.9 L (25-40) % [place] % (Auto) 7.3 (3-14) % Eos % (Auto) 0.5 L (2-4) % Baso % (Auto) 0.6 (0-2) % Neut # (Auto) 9300 H (8660-5915) /uL Lymph # (Auto) 2700 (5785-3345) /uL [place] # (Auto) 1000 H (0-900) /uL Eos # (Auto) 100 (0-450) /uL Baso # (Auto) 100 (0-100) /uL Sodium 137 (137-145) mmol/L Potassium 3.9 (3.4-5.1) mmol/L Chloride 101 (98-107) mmol/L Carbon Dioxide 25 (22-32) mmol/L BUN 14 (9-20) mg/dL Creatinine 1.00 (0.66-1.25) mg/dL Estimated GFR > 60 (>60) mL/min BUN/Creatinine Ratio 14.0 (6-22) Glucose 111 H (70-100) mg/dL Calcium 9.7 (8.4-10.2) mg/dL Total Bilirubin 0.9 (0.2-1.3) mg/dL AST 77 H (17-59) IU/L ALT 172 H (<50) IU/L Alkaline Phosphatase 64 (38-126) U/L Total Protein 8.6 H (6.3-8.2) g/dL Albumin 5.1 H (3.5-5.0) g/dL Globulin 3.5 (1.7-4.1) g/dL Albumin/Globulin Ratio 1.5 (1.0-2.8) Imaging Data CT scan - abdomen/pelvis: Radiologist's Impression: Melvin Uriarte??38??M??1985 ? Allergy/Adv: No Known Drug Allergies Close Abdomen/Pelvis CT (Signed) Sami Rm - 03/20/24 Abdomen/Pelvis CT (Signed) Cortez,Sarahi - 09/12/23 Abdomen/Pelvis CT (Signed) Rome Trimble - 04/29/22 Launch?[place] [address] CT Scan Report Signed Patient: Melvin Uriarte MR#: [id number] : 1985 Acct:[id number] Age/Sex: 38 / M Date of Service: 03/20/24 Loc: ED Accession Number: [id number] Procedure: CT abdomen pelvis w con Ordering Provider: Jennifer Moe D.O. PROCEDURE: CT ABDOMEN PELVIS W CON INDICATIONS: swelling pain rectal area 12 oclock region, hx abscess TECHNIQUE: After the administration of intravenous contrast, axial sections acquired from the lung bases to the pubic symphysis. Coronal and sagittal reformats were performed. For radiation dose reduction, the following was used: automated exposure control, adjustment of mA and/or kV according to patient size. COMPARISON: [facility], CT, CT ABDOMEN PELVIS W CON, 09/12/2023, 14:13. FINDINGS: Image quality: Diagnostic. Lower Chest: No significant findings. ABDOMEN: Liver: No solid mass. Hepatic steatosis. Gallbladder: No radiopaque gallstones or wall thickening. Biliary ducts: No biliary dilation. Pancreas: No ductal dilation. Spleen: Size is within normal limits. Adrenal Glands: No adrenal nodules. Kidneys and Ureters: No hydronephrosis. No solid mass. No complex renal cystic lesion which requires follow up. Stomach and Bowel: Normal colonic caliber, without significant wall thickening. Diverticulosis without evidence of acute diverticulitis. Perianal abscess posteriorly measuring approximately 2.2 x 1.1 x 1.4 cm (AP by TV by cc). There is surrounding fat stranding. Peritoneum: No abnormal intraperitoneal fluid. No free air. Ventral Wall: No significant ventral hernia. Abdominal Nodes: No retroperitoneal or mesenteric adenopathy by size criteria. Vessels: Aorta and inferior vena cava are normal in size. PELVIS: Pelvic Organs: Unremarkable. Bladder: No bladder wall thickening, accounting for underdistention. Pelvic Nodes: No enlarged lymph nodes. Miscellaneous: No inguinal hernias are seen. Bones: No aggressive osseous abnormality. IMPRESSION: 1. Posterior perianal abscess measuring 2.2 x 1.4 x 1.1 cm. 2. Diverticulosis without evidence of acute diverticulitis. 3. Hepatic steatosis. Dictated by: Sami Rm M.D. on 03/20/2024 at 20:24 Approved by: Sami Rm M.D. on 03/20/2024 at 20:27 [facility] Narrative Medical decision making narrative: 38-year-old male has tenderness at the rectal area at the 12 o'clock position appears somewhat like a hemorrhoid but extends further out than I would expect, it is soft it has not indurated or fluctuant. There has no warmth but it is tender and patient has had similar symptoms in that area. Discussed with patient we will obtain CT imaging as he has had fistulas in the past connecting abscess and required surgery. Labs show white count of 13.2 normal hemoglobin and platelets, electrolytes are normal BUN 14 creatinine 1 glucose is 111, AST 77 alk-phos is [address] abdomen pelvis contrast shows posterior perianal abscess with surrounding fat stranding. Measuring 2.2 x 1.4 x 1.1 cm diverticulosis without evidence of diverticulitis. Hepatic steatosis. Spoke with general surgery, Dr. Mukherjee he would like to keep patient overnight, cover with Zosyn and we will take to the OR in the morning for drainage. Spoke with patient he was agreeable to stay. Discharge Plan Departure Patient Disposition: Admitted as Observation Clinical Impression: Abscess, perianal Admit Date/Time: 03/20/24 20:52 Admit Provider: Jonas Mukherjee
--- NOTE | 2024-03-20 19:46 | PC.NURSE ---
Pt up ambulatory to [facility]. Discussed plan of care, understands.
--- NOTE | 2024-03-20 19:53 | DI.CT.S_ITS ---
PROCEDURE: CT ABDOMEN PELVIS W CON INDICATIONS: swelling pain rectal area 12 oclock region, hx abscess TECHNIQUE: After the administration of intravenous contrast, axial sections acquired from the lung bases to the pubic symphysis. Coronal and sagittal reformats were performed. For radiation dose reduction, the following was used: automated exposure control, adjustment of mA and/or kV according to patient size. COMPARISON: [facility], CT, CT ABDOMEN PELVIS W CON, 09/12/2023, 14:13. FINDINGS: Image quality: Diagnostic. Lower Chest: No significant findings. ABDOMEN: Liver: No solid mass. Hepatic steatosis. Gallbladder: No radiopaque gallstones or wall thickening. Biliary ducts: No biliary dilation. Pancreas: No ductal dilation. Spleen: Size is within normal limits. Adrenal Glands: No adrenal nodules. Kidneys and Ureters: No hydronephrosis. No solid mass. No complex renal cystic lesion which requires follow up. Stomach and Bowel: Normal colonic caliber, without significant wall thickening. Diverticulosis without evidence of acute diverticulitis. Perianal abscess posteriorly measuring approximately 2.2 x 1.1 x 1.4 cm (AP by TV by cc). There is surrounding fat stranding. Peritoneum: No abnormal intraperitoneal fluid. No free air. Ventral Wall: No significant ventral hernia. Abdominal Nodes: No retroperitoneal or mesenteric adenopathy by size criteria. Vessels: Aorta and inferior vena cava are normal in size. PELVIS: Pelvic Organs: Unremarkable. Bladder: No bladder wall thickening, accounting for underdistention. Pelvic Nodes: No enlarged lymph nodes. Miscellaneous: No inguinal hernias are seen. Bones: No aggressive osseous abnormality. IMPRESSION: 1. Posterior perianal abscess measuring 2.2 x 1.4 x 1.1 cm. 2. Diverticulosis without evidence of acute diverticulitis. 3. Hepatic steatosis. Dictated by: Sami Rm M.D. on 03/20/2024 at 20:24 Approved by: Sami Rm M.D. on 03/20/2024 at 20:27
[2024-03-20 20:00] VITALS: BP 135/78; PULSE 65; RESP 18; O2SAT 99
[2024-03-20 20:07] LABS: Add Manual Diff / Slide Review NO; Basophils Absolute Auto 100 /uL (0-100); Basophils Percent Auto 0.6 % (0-2); Eosinophils Absolute Auto 100 /uL (0-450); Eosinophils Percent Auto 0.5 % (2-4); Hematocrit 47.7 % (41-53); Hemoglobin 16.4 g/dL (13.5-17.5); Lymphocytes Absolute Auto 2700 /uL (1100-4500); Lymphocytes Percent Auto 20.9 % (25-40); Mean Corpuscular HGB Conc 34.3 % (30-36); Mean Corpuscular Hemoglobin 30.5 PG (26-34); Mean Corpuscular Volume 88.8 fL (80-100); Monocytes Absolute Auto 1000 /uL (0-900); Monocytes Percent Auto 7.3 % (3-14); Neutrophils Absolute Auto 9300 /uL (1500-7000); Neutrophils Percent Auto 70.7 % (50-75); Platelet Count 177 X10^3/uL (150-400); Red Blood Cell Count 5.38 X10^6/uL (4.5-5.9); Red Cell Distribution Width 13.4 % (11.6-14.8); White Blood Cell Count 13.2 X10^3/uL (4.5-11.0)
[2024-03-20] MEDS: KETOROLAC 30 MG/ML VIAL 15 MG IV (20:12)
[2024-03-20] MEDS: PIPERACILLIN/TAZO 4.5 GM in SODIUM CHLORIDE 0.9% 100 ML IV (20:13)
[2024-03-20 20:19] LABS: Albumin 5.1 g/dL (3.5-5.0); Albumin Globulin Ratio 1.5 (1.0-2.8); Alkaline Phosphatase 64 U/L (38-126); Bilirubin Total 0.9 mg/dL (0.2-1.3); Blood Urea Nitrogen 14 mg/dL (9-20); Calcium 9.7 mg/dL (8.4-10.2); Carbon Dioxide 25 mmol/L (22-32); Chloride 101 mmol/L (98-107); Estimated Glomerular Filt Rate > 60 mL/min (>60); Globulin 3.5 g/dL (1.7-4.1); Glucose 111 mg/dL (70-100); Sodium 137 mmol/L (137-145); Total Protein 8.6 g/dL (6.3-8.2)
[2024-03-20 20:29] LABS: Aspartate Aminotransferase 77 IU/L (17-59); HEMOLYSIS 53 (0-50); Potassium 3.9 mmol/L (3.4-5.1)
[2024-03-20 20:30] LABS: Alanine Aminotransferase 172 IU/L (<50)
[2024-03-20 21:00] VITALS: BP 144/78; PULSE 65; RESP 18; O2SAT 98
[2024-03-20 22:00] VITALS: BP 140/87; PULSE 78; RESP 18; TEMP 36.9; O2SAT 98
[2024-03-20 22:32] VITALS: BMI 32.6
[2024-03-20] MEDS: SODIUM CHLORIDE 0.9% 1,000 ML 100 ML IV (23:21)
[2024-03-21] MEDS: PIPERACILLIN/TAZO 3.375 GM in SODIUM CHLORIDE 0.9% 100 ML IV ×2 (00:18→09:30)
[2024-03-21] MEDS: HYDROMORPHONE 1 MG INJ 0.5 MG IV ×5 (03:13→18:12)
[2024-03-21] MEDS: SODIUM CHLORIDE 0.9% 1,000 ML 100 ML IV (08:22)
--- NOTE | 2024-03-21 11:22 | PM.HP.1 ---
History of Present Illness History of Present Illness Date Patient Seen: 03/21/24 Time Patient Seen: 11:22 Chief complaint: perianal abcess Narrative: 38-year-old man with long history of perirectal abscess and fistula who presents with a perianal abscess. Worsening perianal pain over the past several days no active drainage fever or incontinence. He presented to [facility] Emergency Department March 20, 2024. CT abdomen pelvis demonstrates a posterior perianal abscess. [facility] Social History household members: family Smoking Status: Never smoker Meds Home Medications and Allergies Home Medications Medication Instructions Recorded Confirmed Type No Known Home Medications 03/20/24 03/20/24 History Allergies Allergy/AdvReac Type Severity Reaction Status Date / Time No Known Drug Allergies Allergy Verified 09/12/23 11:38 Exam Vital Signs (past 8 hours): Oxygen Delivery Method Room Air Narrative Exam Narrative: General adult man alert oriented no acute distress Rectum posterior midline perianal fluctuance. Objective Labs 03/20/24 19:55 03/20/24 19:55 Labs: Laboratory Results - last 24 hr 03/20/24 19:55 WBC 13.2 H RBC 5.38 Hgb 16.4 Hct 47.7 MCV 88.8 MCH 30.5 MCHC 34.3 RDW 13.4 Plt Count 177 Neut % (Auto) 70.7 Lymph % (Auto) 20.9 L [place] % (Auto) 7.3 Eos % (Auto) 0.5 L Baso % (Auto) 0.6 Neut # (Auto) 9300 H Lymph # (Auto) 2700 [place] # (Auto) 1000 H Eos # (Auto) 100 Baso # (Auto) 100 Sodium 137 Potassium 3.9 Chloride 101 Carbon Dioxide 25 BUN 14 Creatinine 1.00 Estimated GFR > 60 BUN/Creatinine Ratio 14.0 Glucose 111 H Calcium 9.7 Total Bilirubin 0.9 AST 77 H ALT 172 H Alkaline Phosphatase 64 Total Protein 8.6 H Albumin 5.1 H Globulin 3.5 Albumin/Globulin Ratio 1.5 Assessment & Plan Assessment and plan (1) Abscess, perianal: Problem details: 38-year-old man history of perirectal abscess and fistula with a perianal abscess. Recommend rectal examination under anesthesia with incision and drainage abscess, possible fistulotomy, possible seton placement. Overview of the operation discussed. Operative risks including hemorrhage, infection, incontinence reviewed. Questions have been answered. Status: Acute Time-Based Coding :: [TOTAL MINUTES] spent with patient and on the chart (including review of chart, obtaining history, exam, reviewing outside data, placing orders, documenting exam and treatment plan, and counseling patient) on [DATE].
[2024-03-21 11:52] VITALS: BP 155/92; PULSE 85; RESP 17; TEMP 37.1; O2SAT 96; BMI 32.6
--- NOTE | 2024-03-21 12:40 | CM.DANOTE ---
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 Patient admitted for surgery including I+D of abscess by Dr neal. INS: [facility] No PCP Met w/patient's spouse Zulma in patient's room, patient off the floor in the OR. 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 Patient is scheduled for add deployment in May. Spouse reports concern about follow up with any speciality doctor as patient does not have a PCP to refer within the system and getting a PCP designated is difficult. Spouse is well versed and reports she will be working closely with patient, her , and with his command, outpatient doctors, to establish patient with the medical care needed. CM team will plan to follow closely in case we can be of any assist to patient and spouse with resource referral, referral for outpatient services, etc. No barriers identified at this time to patient's safe return home w/family to assist as needed. Close outpatient follow up will be recommended. SAFIA Mcleod Discharge Planning/Care Management CM Discharge Assessment Start: 03/21/24 12:38 Freq: Status: Active Protocol: Document 03/21/24 12:38 CONNOR (Rec: 03/21/24 12:40 CONNOR [id number]) Discharge Planning Assessment Assigned [employer] SAFIA Sky DPOA/Assigned Designee Name Zulma Uriarte, spouse Advance Directives? No History Provided By Family Member,Medical Record Prior Living Arrangements House Household Members family,children Type of transporation used prior to Drives own vehicle admit Independent with ADL's Yes Is patient alert and oriented? Yes Comment TBD Discharge Plan Home Transportation Arrangement Family Additional Comment TBD Whiteboard Updated in Patient Room with Yes name and ext. 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
--- NOTE | 2024-03-21 13:30 | SUR.OPER ---
Lithotomy on padded OR bed, head on pillow, arms secured on padded arm boards at <90 degrees abduction. Legs secured in padded yellow fins stirrups.
[2024-03-21] MEDS: BUPIVACAINE 0.25% (PF) 30 ML, EPINEPHrine 0.15 MG INJ (13:37)
[2024-03-21 13:43] VITALS: BP 151/73; PULSE 108; RESP 16; TEMP 36.7; O2SAT 98
[2024-03-21 13:48] VITALS: BP 161/67; PULSE 106; RESP 14; O2SAT 98
--- NOTE | 2024-03-21 13:51 | PM.OP.1 ---
Operative Date/Time/Diagnoses Date of procedure: 03/21/24 Time of procedure: 13:51 Pre-op diagnosis: Perianal abscess Post-op diagnosis: same Procedure & Clinicians Procedure: Incision and drainage of perianal abscess Same procedure as scheduled: Yes Indications: 38-year-old man history of chronic perianal/perirectal abscess and fistula who presents with a perianal abscess Surgeon: Dash Nelson Click Yes if Unassisted: Yes Anesthesia Type: General Operative Notes Findings: Superficial perianal abscess posterior midline Specimen(s): none sent Estimated Blood Loss (mL): 10 Procedure in detail: Patient was brought to the operating room placed supine on the table. Bilateral lower extremity compression devices were applied. General anesthesia induced an intubated with an endotracheal tube. He was then placed into lithotomy position and appropriately padded. Time-out was performed. He prepped and draped in typical fashion. Had a fluctuant mass at the posterior midline superficial. A cruciate incision was made in the perianal abscess which drained purulent material spontaneously. The wound was packed with iodoform gauze. Tolerated the procedure well was extubated transferred to recovery in good condition. Complications: none Post-operative Condition: stable Plan for aftercare: Discharge later today
[2024-03-21 13:53] VITALS: BP 150/81; PULSE 99; RESP 16; O2SAT 98
--- NOTE | 2024-03-31 06:10 | PC.NURSE ---
Late entry for 03/20/24: Dilauded 0.5mg administered at 22:45.
== END 2024-03-21 18:35 | disposition home or self-care (01) | DRG 349 ==
LOC: ED 20:51 → AC 22:01
PROVIDERS: Surgery; Admitting Provider Surgery; Emergency Provider Emergency Medicine; Referring Provider Emergency Medicine; Visit Provider Surgery
PROC: 0D9Q0ZZ Drainage of Anus, Open Approach (ICD-10-PCS; CPT 46040; principal; 2024-03-21 11:30)
DX: K61.0 Anal abscess (principal)
CPT/HCPCS: 36415; 46050; 74177; 80053; 85025; 96365; 96366; 96375; 99232; 99284; 99285; J0171; J0330; J1100; J1171; J1885; J2250; J2405; J2543; J2704; J3010; Q9967

== ENCOUNTER 2024-04-15 09:47 | Emergency (ER) | payer OTHER, SELFPAY ==
[2024-04-15 10:00] VITALS: BP 139/98; PULSE 74; RESP 16; TEMP 36.2; O2SAT 98; BMI 33.6
--- NOTE | 2024-04-15 11:56 | DI.CT.S_ITS ---
PROCEDURE: CT ABDOMEN PELVIS W CON INDICATIONS: ?perianal abscess TECHNIQUE: After the administration of intravenous contrast, axial sections acquired from the lung bases to the pubic symphysis. Coronal and sagittal reformats were performed. For radiation dose reduction, the following was used: automated exposure control, adjustment of mA and/or kV according to patient size. COMPARISON: [facility], CT, CT ABDOMEN PELVIS W CON, 03/20/2024, 20:00. FINDINGS: Image quality: Diagnostic. Lower Chest: No significant findings. ABDOMEN: Liver: No solid mass. Normal size. Unchanged moderate to severe diffuse hepatic steatosis. Gallbladder: No radiopaque gallstones or wall thickening. Biliary ducts: No biliary dilation. Pancreas: No ductal dilation. Spleen: Size is within normal limits. Adrenal Glands: No adrenal nodules. Kidneys and Ureters: No hydronephrosis. No solid mass. No complex renal cystic lesion which requires follow up. Stomach and Bowel: Normal colonic caliber, without significant wall thickening. No perianal abscess identified. Mild diverticulosis without evidence of acute diverticulitis. Peritoneum: No abnormal intraperitoneal fluid. No free air. Ventral Wall: No significant ventral hernia. Abdominal Nodes: No retroperitoneal or mesenteric adenopathy by size criteria. Vessels: Aorta and inferior vena cava are normal in size. PELVIS: Pelvic Organs: Unremarkable. Bladder: No bladder wall thickening, accounting for underdistention. Pelvic Nodes: No enlarged lymph nodes. Miscellaneous: Small fat containing left inguinal hernia. No perianal abscess identified. Bones: No aggressive osseous abnormality. IMPRESSION: 1. Unchanged moderate to severe diffuse hepatic steatosis. 2. No recurrent perianal abscess identified. 3. No acute abdominal process identified. Dictated by: Jack Vela M.D. on 04/15/2024 at 12:52 Approved by: Jack Vela M.D. on 04/15/2024 at 12:57
--- NOTE | 2024-04-15 11:58 | ED_ITS ---
HPI - Skin/Abscess/Foreign Bdy <Corinne Harrison PA-C - Last Filed: 04/15/24 18:00> General Chief complaint: Skin/Abscess/Foreign Body Stated complaint: Still having Rectal Pain after surgery . Time Seen by Provider: 04/15/24 11:27 Source: patient Mode of arrival: Family Vehicle History of Present Illness HPI narrative: 38-year-old male with past medical history perianal abscess presents to the ED with 3 days of perianal pain. Patient has had 2 surgeries for a perianal abscess, the latest of which was on 03/21/2024, performed by Dr. Nelson. Patient states he was healing well since then, however 3 days ago he started feeling pain and swelling at a spot just below his surgical incision. Patient denies fever, chills, nausea, vomiting, chest pain, shortness of breath. No history of hemorrhoids. Related Data Previous Rx's Medication Instructions Recorded acetaminophen 325 mg capsule 650 mg (2 x 325 mg) PO QID PRN 03/21/24 (Tylenol) pain #60 caps celecoxib 200 mg capsule (Celebrex) 200 mg PO BID #20 caps 03/21/24 docusate sodium 100 mg capsule 100 mg PO BID #30 caps 03/21/24 (Colace) oxycodone 5 mg tablet 5 mg PO Q6H PRN pain #5 tabs 03/21/24 amoxicillin 875 mg-potassium 1 tab PO Q12H 7 days #14 tabs 04/15/24 clavulanate 125 mg tablet hydrocortisone acetate 30 mg 30 mg VA BID 6 days #12 ea 04/15/24 rectal suppository Allergies Allergy/AdvReac Type Severity Reaction Status Date / Time No Known Drug Allergies Allergy Verified 04/15/24 10:02 Review of Systems <Corinne Harrison PA-C - Last Filed: 04/15/24 18:00> Constitutional Constitutional: Denies chills, Denies fatigue, Denies fever(s), Denies frequent falls, Denies lethargy and Denies weakness Eyes Eyes: Denies change in vision, Denies eye discharge, Denies irritation and Denies loss of vision ENT Ears, Nose, Mouth, and Throat: Denies change in voice, Denies dizziness, Denies neck pain, Denies sore throat and Denies throat swelling Cardiovascular Cardiovascular: Denies chest pain, Denies irregular heart rhythm, Denies lightheadedness, Denies palpitations, Denies dyspnea, Denies dyspnea on exertion and Denies orthopnea Respiratory Respiratory: Denies cough, Denies dyspnea, Denies dyspnea on exertion and Denies wheezing Gastrointestinal Gastrointestinal: Denies abdominal pain, Denies change in bowel habits, Denies diarrhea, Denies nausea and Denies vomiting Comments: Perianal pain and swelling Musculoskeletal Musculoskeletal: Denies neck pain and Denies numbness Integumentary/Breasts Skin/Breast: Denies pruritus, Denies erythema, Denies rash and Denies wounds Neurologic Neurologic: Denies behavioral changes, Denies confusion, Denies dizziness, Denies frequent falls, Denies loss of vision, Denies numbness and Denies weakness Psychiatric Psychiatric: Denies anxiety, Denies behavioral changes, Denies confusion, Denies depression, Denies homicidal ideation and Denies suicidal ideation Endocrine Endocrine: Denies fatigue, Denies flushing and Denies palpitations Hematologic/Lymphatic Hematologic/Lymphatic: Denies easy bruising Allergic/Immunologic Allergic/Immunologic: Denies urticaria, Denies throat swelling and Denies wheezing Patient History <Corinne Harrison PA-C - Last Filed: 04/15/24 18:00> Social History household members: family and children Smoking Status: Never smoker Smoking Status: Never smoker alcohol intake frequency: other Alcohol type: beer Substance Use Type: does not use Exam <Corinne Harrison PA-C - Last Filed: 04/15/24 18:00> Narrative Exam Narrative: Const General:?cooperative, healthy appearing and comfortable [facility] Head:?normal to inspection Ears:?hearing grossly normal bilaterally Nose:?external nose normal Face and sinus:?normal facial exam and sinuses nontender Mouth:?oral mucosae normal Throat:?posterior oropharynx normal Eyes General:?appearance normal, both eyes and all related structures Neck Neck:?normal visual inspection and no lymphadenopathy noted Resp Effort & Inspection:?normal respiratory effort Auscultation:?clear to auscultation bilaterally Cardio Rate:?regular rate Rhythm:?regular rhythm GI There is a small region of fluctuance, tenderness in the perianal region. No hemorrhoids visualized on exam. Neuro General:?patient alert, patient awake and patient oriented x3 Initial Vital Signs Initial Vital Signs: Vital Signs Temperature 97.2 F L 04/15/24 10:00 Pulse Rate 74 04/15/24 10:00 Respiratory Rate 16 04/15/24 10:00 Blood Pressure 139/98 H 04/15/24 10:00 Pulse Oximetry 98 04/15/24 10:00 Oxygen Delivery Method Room Air 04/15/24 10:00 <Jennifer Moe DO - Last Filed: 04/16/24 12:04> Narrative Exam Narrative: Const General:?cooperative, healthy appearing and comfortable [facility] Head:?normal to inspection Ears:?hearing grossly normal bilaterally Nose:?external nose normal Face and sinus:?normal facial exam and sinuses nontender Mouth:?oral mucosae normal Throat:?posterior oropharynx normal Eyes General:?appearance normal, both eyes and all related structures Neck Neck:?normal visual inspection and no lymphadenopathy noted Resp Effort & Inspection:?normal respiratory effort Auscultation:?clear to auscultation bilaterally Cardio Rate:?regular rate Rhythm:?regular rhythm GI There is a small region of fluctuance, tenderness in the perianal region. No hemorrhoids visualized on exam. Neuro General:?patient alert, patient awake and patient oriented x3 Dr Moe: External exam no swelling or erythema, patient is nontender did have some Toradol earlier. No hemorrhoids are visualized. On digital rectal exam chaperoned by YELENA Harrison, patient has a little bit of fullness at the 6 o'clock position but is nontender. No palpable hemorrhoid. Patient does note this is the location that he had his prior surgery. Initial Vital Signs Initial Vital Signs: Vital Signs Temperature 97.2 F L 04/15/24 10:00 Pulse Rate 74 04/15/24 10:00 Respiratory Rate 16 04/15/24 10:00 Blood Pressure 139/98 H 04/15/24 10:00 Pulse Oximetry 98 04/15/24 10:00 Oxygen Delivery Method Room Air 04/15/24 10:00 Course <Corinne Harrison PA-C - Last Filed: 04/15/24 18:00> Orders Ordered: Discontinued Medications Acetaminophen (Acetaminophen 325 Mg Tablet) 975 mg PO NOW ONE Stop: 04/15/24 11:58 Last Admin: 04/15/24 12:02 Dose: 975 mg Documented By: SAVANA Ketorolac Tromethamine (Ketorolac 30 Mg/Ml Vial) 15 mg IV NOW ONE Stop: 04/15/24 11:58 Last Admin: 04/15/24 12:01 Dose: 15 mg Documented By: SAVANA Vital Signs Vital signs: Vital Signs - 8 hr 04/15/24 10:00 04/15/24 14:05 Temperature 97.2 F L Pulse Rate 74 74 Respiratory Rate 16 16 Blood Pressure 139/98 H 149/91 H Pulse Oximetry 98 99 Oxygen Delivery Method Room Air Room Air <Jennifer Moe DO - Last Filed: 04/16/24 12:04> Orders Ordered: Discontinued Medications Acetaminophen (Acetaminophen 325 Mg Tablet) 975 mg PO NOW ONE Stop: 04/15/24 11:58 Last Admin: 04/15/24 12:02 Dose: 975 mg Documented By: SAVANA Ketorolac Tromethamine (Ketorolac 30 Mg/Ml Vial) 15 mg IV NOW ONE Stop: 04/15/24 11:58 Last Admin: 04/15/24 12:01 Dose: 15 mg Documented By: SAVANA Vital Signs Vital signs: Vital Signs - 8 hr 04/15/24 10:00 04/15/24 14:05 Temperature 97.2 F L Pulse Rate 74 74 Respiratory Rate 16 16 Blood Pressure 139/98 H 149/91 H Pulse Oximetry 98 99 Oxygen Delivery Method Room Air Room Air MDM - Skin/Abscess/Foreign Bdy <Corinne Harrison PA-C - Last Filed: 04/15/24 18:00> Lab Data 04/15/24 12:10 04/15/24 12:10 Labs: Lab Results 04/15/24 Range/Units 12:10 WBC 5.5 (4.5-11.0) X10^3/uL RBC 5.20 (4.5-5.9) X10^6/uL Hgb 15.9 (13.5-17.5) g/dL Hct 46.6 (41-53) % MCV 89.6 (80-100) fL MCH 30.5 (26-34) PG MCHC 34.0 (30-36) % RDW 13.4 (11.6-14.8) % Plt Count 163 (150-400) X10^3/uL Neut % (Auto) 51.7 (50-75) % Lymph % (Auto) 36.3 (25-40) % [place] % (Auto) 9.9 (3-14) % Eos % (Auto) 1.4 L (2-4) % Baso % (Auto) 0.7 (0-2) % Neut # (Auto) 2900 (0345-3189) /uL Lymph # (Auto) 2000 (3006-0395) /uL [place] # (Auto) 500 (0-900) /uL Eos # (Auto) 100 (0-450) /uL Baso # (Auto) 0 (0-100) /uL PT 11.7 (9.4-12.5) SECONDS INR 1.0 (0.9-1.3) APTT 40 H (25.1-36.5) SECONDS Sodium 137 (137-145) mmol/L Potassium 4.0 (3.4-5.1) mmol/L Chloride 99 (98-107) mmol/L Carbon Dioxide 28 (22-32) mmol/L BUN 16 (9-20) mg/dL Creatinine 0.82 (0.66-1.25) mg/dL Estimated GFR > 60 (>60) mL/min BUN/Creatinine Ratio 19.5 (6-22) Glucose 106 H (70-100) mg/dL Calcium 9.6 (8.4-10.2) mg/dL Total Bilirubin 0.8 (0.2-1.3) mg/dL AST 56 (17-59) IU/L ALT 117 H (<50) IU/L Alkaline Phosphatase 68 (38-126) U/L Total Protein 7.9 (6.3-8.2) g/dL Albumin 4.7 (3.5-5.0) g/dL Globulin 3.2 (1.7-4.1) g/dL Albumin/Globulin Ratio 1.5 (1.0-2.8) MDM Narrative Medical decision making narrative: 38-year-old male with past medical history perianal abscess presents to the ED with 3 days of perianal pain. Concern for perianal abscess versus hemorrhoids versus other. Physical exam is more consistent with an abscess. Will obtain labs, CT scan. Will give Toradol and Tylenol for pain. Will reassess. Dr. Moe was consulted, she examined the patient, suspects hemorrhoids could be contributing to patient's symptoms. On reexamination, patient did not have the same tenderness, and the swelling had subsided as well. It is reassuring that patient has a follow-up with his surgeon in 4 days. Prescribed antibiotics, hydrocortisone suppositories. ED return precautions were discussed with patient. Patient verbalized understanding. Medical records reviewed: Yes <Jenniferwilberto Moe, - Last Filed: 04/16/24 12:04> Lab Data Labs: Lab Results 04/15/24 Range/Units 12:10 WBC 5.5 (4.5-11.0) X10^3/uL RBC 5.20 (4.5-5.9) X10^6/uL Hgb 15.9 (13.5-17.5) g/dL Hct 46.6 (41-53) % MCV 89.6 (80-100) fL MCH 30.5 (26-34) PG MCHC 34.0 (30-36) % RDW 13.4 (11.6-14.8) % Plt Count 163 (150-400) X10^3/uL Neut % (Auto) 51.7 (50-75) % Lymph % (Auto) 36.3 (25-40) % [place] % (Auto) 9.9 (3-14) % Eos % (Auto) 1.4 L (2-4) % Baso % (Auto) 0.7 (0-2) % Neut # (Auto) 2900 (1815-7063) /uL Lymph # (Auto) 2000 (9159-0111) /uL [place] # (Auto) 500 (0-900) /uL Eos # (Auto) 100 (0-450) /uL Baso # (Auto) 0 (0-100) /uL PT 11.7 (9.4-12.5) SECONDS INR 1.0 (0.9-1.3) APTT 40 H (25.1-36.5) SECONDS Sodium 137 (137-145) mmol/L Potassium 4.0 (3.4-5.1) mmol/L Chloride 99 (98-107) mmol/L Carbon Dioxide 28 (22-32) mmol/L BUN 16 (9-20) mg/dL Creatinine 0.82 (0.66-1.25) mg/dL Estimated GFR > 60 (>60) mL/min BUN/Creatinine Ratio 19.5 (6-22) Glucose 106 H (70-100) mg/dL Calcium 9.6 (8.4-10.2) mg/dL Total Bilirubin 0.8 (0.2-1.3) mg/dL AST 56 (17-59) IU/L ALT 117 H (<50) IU/L Alkaline Phosphatase 68 (38-126) U/L Total Protein 7.9 (6.3-8.2) g/dL Albumin 4.7 (3.5-5.0) g/dL Globulin 3.2 (1.7-4.1) g/dL Albumin/Globulin Ratio 1.5 (1.0-2.8) MDM Narrative Medical decision making narrative: 38-year-old male with past medical history perianal abscess presents to the ED with 3 days of perianal pain. Concern for perianal abscess versus hemorrhoids versus other. Physical exam is more consistent with an abscess. No hemorrhoids noted on exam. Will obtain labs, CT scan. Will give Toradol and Tylenol for pain. Will reassess. Discharge Plan Departure Patient Disposition: Home Clinical Impression: Pain, rectal Instructions: DI for Hemorrhoids Activity Restrictions/Additional Instructions: You were evaluated in the ED today for rectal pain. Your CT scan was normal and without evidence of a perianal abscess. It is reassuring that during reexamination, your pain has significantly subsided. You were given some Toradol and Tylenol in the ED today. You are being prescribed antibiotics and rectal suppositories for hemorhhoid control. Please continue taking 800 mg of ibuprofen every 8 hours with food. Please also take Tylenol 1000 mg 3 times a day. Please follow-up with your surgeon as scheduled in 3 days. Return to the ED if you have worsening symptoms. Prescriptions: New amoxicillin-pot clavulanate 875-125 mg tablet 1 tab PO Q12H 7 Days Qty: 14 0RF hydrocortisone acetate 30 mg suppository 30 mg VA BID 6 Days Qty: 12 0RF No Action celecoxib [Celebrex] 200 mg capsule 200 mg PO BID Qty: 20 0RF docusate sodium [Colace] 100 mg capsule 100 mg PO BID Qty: 30 0RF oxycodone 5 mg tablet 5 mg PO Q6H PRN (Reason: pain) Qty: 5 0RF acetaminophen [Tylenol] 325 mg capsule 650 mg PO QID PRN (Reason: pain) Qty: 60 0RF Referrals: Provider,Luisito OCONNELL [Primary Care Provider] - Stand Alone Forms: Patient Portal/API/Survey ED Sign-out <Jennifer Moe DO - Last Filed: 04/16/24 12:04> Cosign ED Attending Fco Attestation: I was immediately available in the department for consultation. Case was discussed, hemorrhoids lower on the differential there is a little bit of fullness maybe scar tissue from prior involvement but is nontender on examination. Patient has short term follow-up we will give a prescription if worsening symptoms or increasing redness or swelling in the rectal area with follow up this with General surgery.
[2024-04-15] MEDS: KETOROLAC 30 MG/ML VIAL 15 MG IV (12:01)
[2024-04-15] MEDS: ACETAMINOPHEN 325 MG TABLET 975 MG PO (12:02)
[2024-04-15 12:22] LABS: Add Manual Diff / Slide Review NO; Basophils Absolute Auto 0 /uL (0-100); Basophils Percent Auto 0.7 % (0-2); Eosinophils Absolute Auto 100 /uL (0-450); Eosinophils Percent Auto 1.4 % (2-4); Hematocrit 46.6 % (41-53); Hemoglobin 15.9 g/dL (13.5-17.5); Lymphocytes Absolute Auto 2000 /uL (1100-4500); Lymphocytes Percent Auto 36.3 % (25-40); Mean Corpuscular Hemoglobin 30.5 PG (26-34); Mean Corpuscular Volume 89.6 fL (80-100); Monocytes Absolute Auto 500 /uL (0-900); Monocytes Percent Auto 9.9 % (3-14); Neutrophils Absolute Auto 2900 /uL (1500-7000); Neutrophils Percent Auto 51.7 % (50-75); Platelet Count 163 X10^3/uL (150-400); Red Cell Distribution Width 13.4 % (11.6-14.8); White Blood Cell Count 5.5 X10^3/uL (4.5-11.0)
[2024-04-15 12:28] LABS: Prothrombin Time 11.7 SECONDS (9.4-12.5)
[2024-04-15 12:31] LABS: PTT Partial Thromboplastin Tim 40 SECONDS (25.1-36.5)
[2024-04-15 12:32] LABS: Alanine Aminotransferase 117 IU/L (<50); Albumin 4.7 g/dL (3.5-5.0); Albumin Globulin Ratio 1.5 (1.0-2.8); Alkaline Phosphatase 68 U/L (38-126); Aspartate Aminotransferase 56 IU/L (17-59); BUN Creatinine Ratio 19.5 (6-22); Bilirubin Total 0.8 mg/dL (0.2-1.3); Blood Urea Nitrogen 16 mg/dL (9-20); Calcium 9.6 mg/dL (8.4-10.2); Carbon Dioxide 28 mmol/L (22-32); Chloride 99 mmol/L (98-107); Estimated Glomerular Filt Rate > 60 mL/min (>60); Globulin 3.2 g/dL (1.7-4.1); Glucose 106 mg/dL (70-100); HEMOLYSIS < 15 (0-50); Sodium 137 mmol/L (137-145); Total Protein 7.9 g/dL (6.3-8.2)
[2024-04-15 14:05] VITALS: BP 149/91; PULSE 74; RESP 16; O2SAT 99
== END 2024-04-15 14:06 | disposition home or self-care (01) ==
PROVIDERS: Emergency Provider Student in an Organized Health Care Education/Training Program
DX: K62.89 Other specified diseases of anus and rectum (principal)
CPT/HCPCS: 36415; 74177; 80053; 85025; 85610; 85730; 96374; 99284; J1885; Q9967

== ENCOUNTER 2024-05-10 08:44 | Emergency (ER) | payer OTHER, SELFPAY ==
[2024-05-10 08:48] VITALS: PULSE 101; O2SAT 99
[2024-05-10 08:53] VITALS: BP 173/95; PULSE 100; RESP 19; TEMP 36.9; O2SAT 100; BMI 33.2
--- NOTE | 2024-05-10 10:28 | ED.SKABFB ---
HPI - Skin/Abscess/Foreign Bdy General Chief complaint: Skin/Abscess/Foreign Body Stated complaint: joseph anal absess Time Seen by Provider: 05/10/24 09:52 Source: patient Mode of arrival: Ambulatory History of Present Illness HPI narrative: 38-year-old male with history of perianal abscess infections and fistulae, has been treated in the operating room in the past, also treated with decompression drainage in emergency department setting, now with left butt cheek perianal area swelling sensation for the last 2 days, not draining. No fevers or chills. He has pain with defecation but has been able to defecate. No nausea or vomiting. No cough, chest pain, shortness of breath, frequency of urination, back pain. He does not take blood thinner medications. He is due to deploy to [place] now, tomorrow. No allergies to Augmentin or sulfa medications. Related Data Previous Rx's Medication Instructions Recorded acetaminophen 325 mg capsule 650 mg (2 x 325 mg) PO QID PRN 03/21/24 (Tylenol) pain #60 caps docusate sodium 100 mg capsule 100 mg PO BID #30 caps 03/21/24 (Colace) amoxicillin 875 mg-potassium 1 tab PO BID #14 tabs 05/10/24 clavulanate 125 mg tablet hydrocodone 5 mg-acetaminophen 325 1 tab PO Q6H PRN pain #14 tabs 05/10/24 mg tablet sulfamethoxazole 800 1 tab PO BID #14 tabs 05/10/24 mg-trimethoprim 160 mg tablet (Bactrim DS) Allergies Allergy/AdvReac Type Severity Reaction Status Date / Time No Known Drug Allergies Allergy Verified 04/18/24 10:50 Review of Systems Review of Systems Narrative: See HPI Patient History Social History household members: family and children Smoking Status: Never smoker Smoking Status: Never smoker alcohol intake frequency: other Alcohol type: beer Substance Use Type: does not use Exam Narrative Exam Narrative: GENERAL: Well-developed patient, in mild distress. HEAD: Atraumatic. Normocephalic. EYES: Pupils equal round and reactive. Extraocular motions intact. No scleral icterus. No injection or drainage. ENT: Nose without bleeding, purulent drainage. Throat without erythema, tonsillar hypertrophy or exudate. Airway patent. NECK: Trachea midline. Non tender CARDIOVASCULAR: Regular rate and rhythm without murmurs, gallops, or rubs. RESPIRATORY: Clear to auscultation. Breath sounds equal bilaterally. No wheezes, rales, or rhonchi. GASTROINTESTINAL: Abdomen soft, non-tender, nondistended. Perianal exam external view, with pulling of butt cheeks apart there was spontaneous decompression of left perianal abscess that was initially about grape sized 1.5 x 1 cm, that essentially completely decompressed, purulence noted, wound culture sent from purulent discharge, expressed gently, no further fluid EXTREMITIES: No edema or joint tenderness. BACK: Nontender without deformity or crepitance. No flank tenderness. NEURO: AOx3. Motor functions grossly nonfocal SKIN: No rash or erythema of visible areas Initial Vital Signs Initial Vital Signs: Vital Signs Pulse Rate 101 H 05/10/24 08:48 Pulse Oximetry 99 05/10/24 08:48 Course Orders Ordered: ED Orders 05/10/24 11:10 CT abdomen pelvis w con Stat 05/10/24 11:24 CBC Auto Diff [Complete Blood Count AUTO DIFF] Stat CMP [Comprehensive Metabolic Panel] Stat Discontinued Medications Hydrocodone Bitart/Acetaminophen (Hydrocodone/Acet 5/325 Tablet) 1 tab PO NOW ONE Stop: 05/10/24 11:00 Last Admin: 05/10/24 11:11 Dose: Not Given Documented By: VÍCTOR Amoxicillin/Clavulanate Potassium (Amoxicillin/Clav 875/125 Mg) 1 tab PO NOW ONE Stop: 05/10/24 10:54 Last Admin: 05/10/24 11:04 Dose: 1 tab Documented By: VÍCTOR Hydromorphone HCl (Hydromorphone 0.5 Mg Inj) 0.5 mg IV NOW ONE Stop: 05/10/24 12:06 Last Admin: 05/10/24 12:14 Dose: 0.5 mg Documented By: VÍCTOR Ketorolac Tromethamine (Ketorolac 30 Mg/Ml Vial) 15 mg IV NOW ONE Stop: 05/10/24 11:12 Last Admin: 05/10/24 11:16 Dose: 15 mg Documented By: VÍCTOR Trimethoprim/Sulfamethoxazole (Trimeth/Sulfa 160/800 (Ds) Tablet) 1 tab PO NOW ONE Stop: 05/10/24 10:54 Last Admin: 05/10/24 11:04 Dose: 1 tab Documented By: VÍCTOR Vital Signs Vital signs: Vital Signs - 8 hr 05/10/24 12:18 05/10/24 12:30 05/10/24 13:00 Temperature Pulse Rate 91 H 91 H 98 H Respiratory Rate Blood Pressure Pulse Oximetry 98 98 Oxygen Delivery Method 05/10/24 13:13 Temperature 98.9 F Pulse Rate 98 H Respiratory Rate 16 Blood Pressure 157/99 H Pulse Oximetry 99 Oxygen Delivery Method Room Air MDM - Skin/Abscess/Foreign Bdy Lab Data Attestation: I reviewed the patient's lab results. Lab results narrative: White blood cell count 01537, hemoglobin 16.3, platelets adequate. Basic metabolic panel negative. Liver functions no significant abnormality. 05/10/24 11:24 05/10/24 11:24 Labs: Lab Results 05/10/24 Range/Units 11: WBC 12.4 H (4.5-11.0) X10^3/uL RBC 5.29 (4.5-5.9) X10^6/uL Hgb 16.3 (13.5-17.5) g/dL Hct 47.3 (41-53) % MCV 89.4 (80-100) fL MCH 30.7 (26-34) PG MCHC 34.4 (30-36) % RDW 13.6 (11.6-14.8) % Plt Count 221 (150-400) X10^3/uL Neut % (Auto) 74.8 (50-75) % Lymph % (Auto) 16.0 L (25-40) % [place] % (Auto) 7.7 (3-14) % Eos % (Auto) 0.6 L (2-4) % Baso % (Auto) 0.9 (0-2) % Neut # (Auto) 9300 H (4650-3808) /uL Lymph # (Auto) 2000 (0839-8627) /uL [place] # (Auto) 1000 H (0-900) /uL Eos # (Auto) 100 (0-450) /uL Baso # (Auto) 100 (0-100) /uL Sodium 139 (137-145) mmol/L Potassium 4.2 (3.4-5.1) mmol/L Chloride 102 (98-107) mmol/L Carbon Dioxide 25 (22-32) mmol/L BUN 16 (9-20) mg/dL Creatinine 0.84 (0.66-1.25) mg/dL Estimated GFR > 60 (>60) mL/min BUN/Creatinine Ratio 19.0 (6-22) Glucose 102 H (70-100) mg/dL Calcium 9.6 (8.4-10.2) mg/dL Total Bilirubin 0.7 (0.2-1.3) mg/dL AST 62 H (17-59) IU/L ALT 137 H (<50) IU/L Alkaline Phosphatase 74 (38-126) U/L Total Protein 8.5 H (6.3-8.2) g/dL Albumin 5.1 H (3.5-5.0) g/dL Globulin 3.4 (1.7-4.1) g/dL Albumin/Globulin Ratio 1.5 (1.0-2.8) Imaging Data CT scan - abdomen/pelvis: Radiologist's Impression: Close Abdomen/Pelvis CT (Signed) RmSami - 05/10/24 Launch?[place] [address] CT Scan Report Signed Patient: Melvin Uriarte MR#: [id number] : 1985 Acct:[id number] Age/Sex: 38 / M Date of Service: 05/10/24 Loc: ED Accession Number: [id number] Procedure: CT abdomen pelvis w con Ordering Provider: You Merritt MD PROCEDURE: CT ABDOMEN PELVIS W CON INDICATIONS: buttock/perianal pain, draining abscess, eval for deep infec TECHNIQUE: After the administration of intravenous contrast, axial sections acquired from the lung bases to the pubic symphysis. Coronal and sagittal reformats were performed. For radiation dose reduction, the following was used: automated exposure control, adjustment of mA and/or kV according to patient size. COMPARISON: [facility], CT, CT ABDOMEN PELVIS W CON, 04/15/2024, 12:28. FINDINGS: Image quality: Diagnostic. Lower Chest: No significant findings. ABDOMEN: Liver: No solid mass. Significant hepatic steatosis is redemonstrated. Gallbladder: No radiopaque gallstones or wall thickening. Biliary ducts: No biliary dilation. Pancreas: No ductal dilation. Spleen: Size is within normal limits. Adrenal Glands: No adrenal nodules. Kidneys and Ureters: No hydronephrosis. No solid mass. No complex renal cystic lesion which requires follow up. Stomach and Bowel: Normal colonic caliber, without significant wall thickening. Diverticulosis without evidence of acute diverticulitis. Mild thickening of the perianal soft tissues without organized fluid collection seen. Peritoneum: No abnormal intraperitoneal fluid. No free air. Ventral Wall: No significant ventral hernia. Abdominal Nodes: No retroperitoneal or mesenteric adenopathy by size criteria. Vessels: Aorta and inferior vena cava are normal in size. PELVIS: Pelvic Organs: Unremarkable. Bladder: No bladder wall thickening, accounting for underdistention. Pelvic Nodes: No enlarged lymph nodes. Miscellaneous: No inguinal hernias are seen. Bones: No aggressive osseous abnormality. IMPRESSION: 1. Mild thickening of the perianal soft tissues without organized fluid collection. Recommend correlation with physical exam. 2. Redemonstration of significant hepatic steatosis. Dictated by: Sami Rm M.D. on 05/10/2024 at 12:22 Approved by: Sami Rm M.D. on 05/10/2024 at 12:27 [facility] Narrative Medical decision making narrative: 38-year-old male with history of recurrent perianal infections, surgical operating room and surgical emergency department drainage procedures in the past, now with 2 days of right buttock pain and swelling sensation, feels similar to previous episodes, no fevers or chills. No fever on triage. On examination lifting of the right buttock had spontaneous rupture and discharge of purulent fluid from 1-1/2 x 1 cm right-sided perianal abscess, swab sent for culture, expressed some further fluid out of the area. Patient felt improved symptoms. Wound culture sent. Oral Augmentin and oral Bactrim. Patient deploying to [facility] soon, prefers imaging prior to deployment. CT abdomen and pelvis with IV contrast ordered. CT abdomen and pelvis shows no drainable fluid collection, mild thickening of perianal soft tissues noted, see radiology report. Copy of the report provided to the patient. CT scan copied onto disc to take to his deployment in [facility] for use if needed in follow up. Prescriptions for Augmentin and Bactrim further antibiotics sent to his pharmacy, advised to have culture results checked in [facility] next 2-3 days, deployment pending for tomorrow, he would like to still be deployed and go with his team. Return precautions and follow up recalled options discussed. Discharge Plan Departure Patient Disposition: Home Clinical Impression: Perianal abscess Activity Restrictions/Additional Instructions: History of recurrent perianal abscesses and fistulas, now with 2 days of left perianal buttock area discomfort and swelling that was not initially draining. No fever on triage. On examination there was a proximally 1.5 x 1 cm area grape sized abscess that on pulling apart your buttock for initial visualization had spontaneous rupture and flow of pus, seemed to be decompressed spontaneously. No incision surgical drainage was required. The area was gently express to remove further fluid, and wiped clean after wound culture was sent. First dose oral antibiotic Augmentin and Bactrim medications given, wound culture results will take a couple of days, the results of which might help narrow the antibiotics required for further course. We will give 7 day course of each of the antibiotics for now. Follow up with your deployment healthcare provider in the next 2-3 days to obtain results of the wound culture, to see if they antibiotic regimen can be narrow to just 1 of the antibiotics. Take pain medications as needed. We discussed CT imaging, initially declined but then preferred. CT abdomen pelvis imaging performed, no drainable fluid collection, reassuring study. Consider Sitz baths 2-3 times daily to help facilitate further drainage of the spontaneously ruptured abscess area. Sometimes surgical extension/incision might be required to fully treat the affected area. Hopefully you were not require any further interventions for this particular round of infection, as it seemed to have rather effectively drained spontaneously so far. Prescriptions: New amoxicillin-pot clavulanate 875-125 mg tablet 1 tab PO BID Qty: 14 0RF sulfamethoxazole-trimethoprim [Bactrim DS] 800-160 mg tablet 1 tab PO BID Qty: 14 0RF hydrocodone-acetaminophen 5-325 mg tablet 1 tab PO Q6H PRN (Reason: pain) Qty: 14 0RF No Action docusate sodium [Colace] 100 mg capsule 100 mg PO BID Qty: 30 0RF acetaminophen [Tylenol] 325 mg capsule 650 mg PO QID PRN (Reason: pain) Qty: 60 0RF Referrals: ProviderLuisito [Primary Care Provider] - Stand Alone Forms: Patient Portal/API/Survey
[2024-05-10] MEDS: AMOXICILLIN/CLAV 875/125 MG 1 TAB PO (11:04)
[2024-05-10] MEDS: TRIMETH/SULFA 160/800 (DS) TABLET 1 TAB PO (11:04)
--- NOTE | 2024-05-10 11:10 | DI.CT.S_ITS ---
PROCEDURE: CT ABDOMEN PELVIS W CON INDICATIONS: buttock/perianal pain, draining abscess, eval for deep infec TECHNIQUE: After the administration of intravenous contrast, axial sections acquired from the lung bases to the pubic symphysis. Coronal and sagittal reformats were performed. For radiation dose reduction, the following was used: automated exposure control, adjustment of mA and/or kV according to patient size. COMPARISON: [facility], CT, CT ABDOMEN PELVIS W CON, 04/15/2024, 12:28. FINDINGS: Image quality: Diagnostic. Lower Chest: No significant findings. ABDOMEN: Liver: No solid mass. Significant hepatic steatosis is redemonstrated. Gallbladder: No radiopaque gallstones or wall thickening. Biliary ducts: No biliary dilation. Pancreas: No ductal dilation. Spleen: Size is within normal limits. Adrenal Glands: No adrenal nodules. Kidneys and Ureters: No hydronephrosis. No solid mass. No complex renal cystic lesion which requires follow up. Stomach and Bowel: Normal colonic caliber, without significant wall thickening. Diverticulosis without evidence of acute diverticulitis. Mild thickening of the perianal soft tissues without organized fluid collection seen. Peritoneum: No abnormal intraperitoneal fluid. No free air. Ventral Wall: No significant ventral hernia. Abdominal Nodes: No retroperitoneal or mesenteric adenopathy by size criteria. Vessels: Aorta and inferior vena cava are normal in size. PELVIS: Pelvic Organs: Unremarkable. Bladder: No bladder wall thickening, accounting for underdistention. Pelvic Nodes: No enlarged lymph nodes. Miscellaneous: No inguinal hernias are seen. Bones: No aggressive osseous abnormality. IMPRESSION: 1. Mild thickening of the perianal soft tissues without organized fluid collection. Recommend correlation with physical exam. 2. Redemonstration of significant hepatic steatosis. Dictated by: Sami Rm M.D. on 05/10/2024 at 12:22 Approved by: Sami Rm M.D. on 05/10/2024 at 12:27
[2024-05-10] MEDS: KETOROLAC 30 MG/ML VIAL 15 MG IV (11:16)
[2024-05-10 11:32] LABS: Add Manual Diff / Slide Review NO; Basophils Absolute Auto 100 /uL (0-100); Basophils Percent Auto 0.9 % (0-2); Eosinophils Absolute Auto 100 /uL (0-450); Eosinophils Percent Auto 0.6 % (2-4); Hematocrit 47.3 % (41-53); Hemoglobin 16.3 g/dL (13.5-17.5); Lymphocytes Absolute Auto 2000 /uL (1100-4500); Mean Corpuscular HGB Conc 34.4 % (30-36); Mean Corpuscular Hemoglobin 30.7 PG (26-34); Mean Corpuscular Volume 89.4 fL (80-100); Monocytes Absolute Auto 1000 /uL (0-900); Monocytes Percent Auto 7.7 % (3-14); Neutrophils Absolute Auto 9300 /uL (1500-7000); Neutrophils Percent Auto 74.8 % (50-75); Platelet Count 221 X10^3/uL (150-400); Red Blood Cell Count 5.29 X10^6/uL (4.5-5.9); Red Cell Distribution Width 13.6 % (11.6-14.8); White Blood Cell Count 12.4 X10^3/uL (4.5-11.0)
[2024-05-10 11:51] LABS: Alanine Aminotransferase 137 IU/L (<50); Albumin 5.1 g/dL (3.5-5.0); Albumin Globulin Ratio 1.5 (1.0-2.8); Alkaline Phosphatase 74 U/L (38-126); Aspartate Aminotransferase 62 IU/L (17-59); Bilirubin Total 0.7 mg/dL (0.2-1.3); Blood Urea Nitrogen 16 mg/dL (9-20); Calcium 9.6 mg/dL (8.4-10.2); Carbon Dioxide 25 mmol/L (22-32); Chloride 102 mmol/L (98-107); Estimated Glomerular Filt Rate > 60 mL/min (>60); Globulin 3.4 g/dL (1.7-4.1); Glucose 102 mg/dL (70-100); HEMOLYSIS < 15 (0-50); Potassium 4.2 mmol/L (3.4-5.1); Sodium 139 mmol/L (137-145); Total Protein 8.5 g/dL (6.3-8.2)
[2024-05-10] MEDS: HYDROMORPHONE 0.5 MG INJ IV (12:14)
[2024-05-10 12:18] VITALS: PULSE 91
--- NOTE | 2024-05-10 12:21 | PC.NURSE ---
Pt reports pain/pressure around rectum. Pt reports having reoccurent abscesses on bottom. Pt states he sits for long periods of time on his bottom for work. Pt denies fevers.
[2024-05-10 12:30] VITALS: PULSE 91; O2SAT 98
[2024-05-10 13:00] VITALS: PULSE 98; O2SAT 98
--- NOTE | 2024-05-10 13:12 | PC.NURSE ---
Addendum entered by Sosa Lund R.N. 05/10/24 13:13: Reports 10+ hours of sitting. Hx of abscess. Pt states he has been told he is overweight. Original Note: Abscess to bottom. Pt states he has attempted sitz bathes but has not had success. Pt states he has taken ibuprofen at home w/o much releif.
[2024-05-10 13:13] VITALS: BP 157/99; PULSE 98; RESP 16; TEMP 37.2; O2SAT 99
== END 2024-05-10 13:14 | disposition home or self-care (01) ==
PROVIDERS: Emergency Provider Emergency Medicine
DX: K61.0 Anal abscess (principal)
CPT/HCPCS: 74177; 80053; 85025; 87070; 87205; 96374; 96375; 99284; J1171; J1885; Q9967

== ENCOUNTER 2024-11-25 17:44 | Emergency (ER) | payer OTHER, SELFPAY ==
[2024-11-25 18:36] VITALS: BP 155/95; PULSE 67; RESP 16; TEMP 36.5; O2SAT 97; BMI 32.8
== END 2024-11-25 19:56 | disposition left against medical advice (07) ==
LOC: ED 21:01
PROVIDERS: Emergency Provider Emergency Medicine
DX: Z53.21 Procedure and treatment not carried out due to patient leaving prior to being seen by health care provider (principal)
CPT/HCPCS: 99281

== ENCOUNTER 2024-11-26 09:13 | Emergency (ER) | payer OTHER, SELFPAY ==
[2024-11-26 09:27] VITALS: BP 143/97; PULSE 68; RESP 17; TEMP 36.6; O2SAT 98; BMI 32.8
--- NOTE | 2024-11-26 09:35 | DI.RAD.S_ITS ---
PROCEDURE: XR KNEE LT 3V INDICATIONS: injury TECHNIQUE: 3 views of the knee were acquired. COMPARISON: [facility], CR, XR KNEE RT 3V, 11/26/2024, 8:51. FINDINGS AND IMPRESSION: No acute displaced fractures identified. Minimal arthrosis. No dislocation. Mild patellar enthesopathy. Mild joint effusion. If there is high concern for further derangement, consider MRI evaluation. Dictated by: Juan Jose Magana M.D. on 11/26/2024 at 10:26 Approved by: Juan Jose Magana M.D. on 11/26/2024 at 10:27
--- NOTE | 2024-11-26 09:35 | DI.RAD.S_ITS ---
PROCEDURE: XR KNEE RT 3V INDICATIONS: injury TECHNIQUE: 3 views of the knee were acquired. COMPARISON: None. FINDINGS AND IMPRESSION: No acute displaced fracture. There is mild patellar tilt. [id number] joint effusion, which can be seen with internal derangement. Consider MRI if there is further concern. Dictated by: Juan Jose Magana M.D. on 11/26/2024 at 10:26 Approved by: Juan Jose Magana M.D. on 11/26/2024 at 10:26
--- NOTE | 2024-11-26 11:53 | PC.NURSE ---
bilateral knee pain worse on right. pt reports acute on chronic knee issues. no large amount of swelling noted. skin color appropriate for ethnicity.
[2024-11-26 11:54] VITALS: BP 138/93; PULSE 67; RESP 16; O2SAT 98
--- NOTE | 2024-11-26 19:31 | ED_ITS ---
HPI - Extremity Injury (Lower) <Corinne Harrisno PA-C - Last Filed: 11/26/24 19:35> General Chief Complaint: Extremity Injury, Lower Stated Complaint: bilateral knee pain x 4 days Time Seen by Provider: 11/26/24 11:23 Source: patient Mode of arrival: Ambulatory History of Present Illness HPI Narrative: 39-year-old male with past medical history right-sided meniscal tear presents to the ED with an acute on chronic exacerbation of the right knee pain. Patient states that his left knee has also been hurting recently. A few days ago, patient was playing soccer and the running exacerbated his right knee pain. No numbness, tingling, weakness. Related Data Previous Rx's ?Medication ?Instructions ?Recorded acetaminophen 325 mg capsule 650 mg (2 x 325 mg) PO QI D PRN 03/21/24 (Tylenol) pain #60 caps docusate sodium 100 mg capsule 100 mg PO BID #30 caps 03/21/24 (Colace) amoxicillin 875 mg-potassium 1 tab PO BID #14 tabs clavulanate 125 mg tablet hydrocodone 5 mg-acetaminophen 325 1 tab PO Q6H PRN pa in #14 tabs 05/10/24 mg tablet sulfamethoxazole 800 1 tab PO BID #14 tabs mg-trimethoprim 160 mg tablet (Bactrim DS) Allergies Allergy/AdvReac Type Severity Reaction Status Date / Time No Known Drug Allergies Allergy Verified 11/26/24 09:28 Review of Systems <Corinne Harrison PA-C - Last Filed: 11/26/24 19:35> Constitutional Constitutional: Denies chills, Denies fatigue, Denies fever(s), Denies frequent falls, Denies lethargy and Denies weakness Eyes Eyes: Denies change in vision, Denies eye discharge, Denies irritation and Denies loss of vision ENT Ears, Nose, Mouth, and Throat: Denies change in voice, Denies dizziness, Denies neck pain, Denies sore throat and Denies throat swelling Cardiovascular Cardiovascular: Denies chest pain, Denies irregular heart rhythm, Denies lightheadedness, Denies palpitations, Denies dyspnea, Denies dyspnea on exertion and Denies orthopnea Respiratory Respiratory: Denies cough, Denies dyspnea, Denies dyspnea on exertion and Denies wheezing Gastrointestinal Gastrointestinal: Denies abdominal pain, Denies change in bowel habits, Denies diarrhea, Denies nausea and Denies vomiting Musculoskeletal Musculoskeletal: Denies neck pain and Denies numbness Comments: Bilateral knee pain, right greater than left Integumentary/Breasts Skin/Breast: Denies pruritus, Denies erythema, Denies rash and Denies wounds Neurologic Neurologic: Denies behavioral changes, Denies confusion, Denies dizziness, Denies frequent falls, Denies loss of vision, Denies numbness and Denies we akness Psychiatric Psychiatric: Denies anxiety, Denies behavioral changes, Denies confusion, Denies depression, Denies homicidal ideation and Denies suicidal ideation Endocrine Endocrine: Denies fatigue, Denies flushing and Denies palpitations Hematologic/Lymphatic Hematologic/Lymphatic: Denies easy bruising Allergic/Immunologic Allergic/Immunologic: Denies urticaria, Denies throat swelling and Denies wheezing Patient History <Corinne Harrison PA-C - Last Filed: 11/26/24 19:35> Social History household members: family and children Smoking Status: Never smoker Smoking Status: Never smoker alcohol intake frequency: other Alcohol type: beer Exam <Corinne Harrison PA-C - Last Filed: 11/26/24 19:35> Narrative Exam Narrative: Const General:?cooperative, healthy appearing and comfortable [facility] Head:?normal to inspection Ears:?hearing grossly normal bilaterally Nose:?external nose normal Face and sinus:?normal facial exam and sinuses nontender Mouth:?oral mucosae normal Throat:?posterior oropharynx normal Eyes General:?appearance normal, both eyes and all related structures Neck Neck:?normal visual inspection and no lymphadenopathy noted Resp Effort & Inspection:?normal respiratory effort Auscultation:?clear to auscultation bilaterally Cardio Rate:?regular rate Rhythm:?regular rhythm Musculoskeletal There is some mild tenderness to palpation of the right knee. There is full range of motion. No bruising, deformities. No tenderness, bruising, deformities of the right knee. Patient is able to bear weight and walk. Patient is neurovascularly intact. Neuro General:?patient alert, patient awake and patient oriented x3 Initial Vital Signs Initial Vital Signs: Vital Signs Temperature 97.9 F 11/26/24 09:27 Pulse Rate 68 11/26/24 09:27 Respiratory Rate 17 11/26/24 09:27 Blood Pressure 143/97 H 11/26/24 09:27 Pulse Oximetry 98 11/26/24 09:27 Oxygen Delivery Method Room Air 11/26/24 09:27 <Alexander Parnell MD - Last Filed: 12/12/24 06:56> Initial Vital Signs Initial Vital Signs: Vital Signs Temperature 97.9 F 11/26/24 09:27 Pulse Rate 68 11/26/24 09:27 Respiratory Rate 17 11/26/24 09:27 Blood Pressure 143/97 H 11/26/24 09:27 Pulse Oximetry 98 11/26/24 09:27 Oxygen Delivery Method Room Air 11/26/24 09:27 Course <Corinne Harrison PA-C - Last Filed: 11/26/24 19:35> Vital Signs Vital signs: Vital Signs - 8 hr 11/26/24 11:54 Pulse Rate 67 Respiratory Rate 16 Blood Pressure 138/93 H Pulse Oximetry 98 Oxygen Delivery Method Room Air <Alexander Parnell MD - Last Filed: 12/12/24 06:56> Vital Signs Vital signs: Vital Signs - 8 hr 11/26/24 11:54 Pulse Rate 67 Respiratory Rate 16 Blood Pressure 138/93 H Pulse Oximetry 98 Oxygen Delivery Method Room Air MDM - Extremity Injury (Lower) <Corinne Harrison PA-C - Last Filed: 11/26/24 19:35> MDM Narrative Medical decision making narrative: 39-year-old male with past medical history right-sided meniscal tear presents to the ED with an acute on chronic exacerbation of the right knee pain. Right knee x-ray shows [id number] joint effusion, which can be seen with internal derangement. Left knee x-ray shows no acute displaced fractures. Mild patellar and 2 soft with the. Mild joint effusion. Discussed findings with patient. Recommend using a flexible knee brace, NSAIDs, Tylenol, heat. Recommend follow-up with PCP, ortho as soon as possible. ED return precautions discussed with patient. Patient verbalized understanding. Medical records reviewed: Yes Discharge Plan Departure Patient Disposition: Home Clinical Impression: Knee pain Instructions: DI for Knee Pain Activity Restrictions/Additional Instructions: You were evaluated in the ED today for knee pain. Your x-rays were normal. It appears that you might have a musculoskeletal sprain/strain of the right knee. It is advisable to wear a knee brace that is still allows you to flex and extend your knee. You may apply heat. You may take 800 mg of ibuprofen every 8 hours with food. You may also add on 1000 mg of Tylenol every 8 hours. Please follow-up with your primary care doctor for further evaluation, physical therapy and ortho referrals. Return to the ED if you have worsening symptoms, numbness, tingling, weakness. Prescriptions: No Action docusate sodium [Colace] 100 mg capsule 100 mg PO BID Qty: 30 0RF acetaminophen [Tylenol] 325 mg capsule 650 mg PO QID PRN (Reason: pain) Qty: 60 0RF amoxicillin-pot clavulanate 875-125 mg tablet 1 tab PO BID Qty: 14 0RF sulfamethoxazole-trimethoprim [Bactrim DS] 800-160 mg tablet 1 tab PO BID Qty: 14 0RF hydrocodone-acetaminophen 5-325 mg tablet 1 tab PO Q6H PRN (Reason: pain) Qty: 14 0RF Referrals: ProviderLuisito [Primary Care Provider, Family Practice] Stand Alone Forms: Patient Portal/API, Work Release Note ED Sign-out <Alexander Parnell MD - Last Filed: 12/12/24 06:56> Cosign ED Attending Cosignature Attestation: I was immediately available in the department for consultation. ?This documentation has been reviewed and I agree with assessment and plan. Supervised by Alexander Parnell MD
== END 2024-11-26 11:54 | disposition home or self-care (01) ==
PROVIDERS: Emergency Provider Student in an Organized Health Care Education/Training Program
DX: M25.561 Pain in right knee (principal); Y93.66 Activity, soccer
CPT/HCPCS: 73562; 99281; 99283